=== PATIENT | female | born 1960 | race Caucasian/White ===

== ENCOUNTER 2022-03-16 10:22 | Inpatient (IN) ==
[2022-03-16] MEDS ORDERED: fentaNYL citrate 100 MCG/2 ML VIAL IV STA (10:37)
--- NOTE | 2022-03-16 10:41 | Emergency Department Note ---
Impression & Plan Left displaced femoral neck fracture ED Provider Note Name: GOMEZ CARR Age: 62 Sex: F Arrives Via: Ambulance Informant: Patient, friend ED Provider: Elgin Jiang MD Chief Complaint: Left hip pain Impression: As per impressions above Medical Decision Making: Pleasant 62-year-old female with history of hypertension, dyslipidemia, stroke, type 2 diabetes, ARCELIA and obesity arrives for evaluation of acute left hip pain. Patient slipped and fell on her friend's hardwood floors landing on her left hip. She had no head injury nor loss of consciousness. She had no headache, neck pain, neurologic deficits nor is she on any blood thinners I do not feel getting CT imaging of the head or neck is indicated at this time. She has significant pain with range of motion of the left hip and her left leg is shortened and externally rotated. There are good pulses and sensation is intact. X-rays reveal a subcapital mildly displaced left hip fracture. Initial labs unremarkable. Patient was kept comfortable with IV narcotics. Hospitalist was consulted along with orthopedics for further management. Patient makes clear this was a mechanical fall and there was no other inciting event. Triage/Nursing Notes reviewed by Me Differentials:Fracture, subluxation, dislocation, contusion, ligamentous injury, neurovascular, compartment syndrome, rhabdomyolysis, as well as other pathologies. Vital Signs: reviewed and remarkable for hypertension Interventions: Fentanyl 50 mcg IV, Dilaudid 0.5 mg IV Labs:Reviewed and remarkable for no significant abnormalities Imaging:X-rays of the chest, left hip, pelvis, left femur. As per radiologist subcapital mildly displaced fracture on the left Consults:Orthopedics & Hospitalist services Plan: Disposition:Hospitalization. Condition: Good History of Present Illness:82-year-old female arrives for evaluation of left hip pain. Patient notes she was at her friend's house when she slipped on the floors. She landed on her left side. She did not hit her head or get knocked out. She notes immediate left hip pain and inability to move the leg due to pain. She was able to get in her friend's car who drove her to the ER. He denies any back, chest, abdominal pains. She states this was not a syncope or other inciting event other than just slipping on the floor. Patient does have a history of strokes and thus was already weak on her left side and that is why she slept. She does take aspirin and Plavix daily. She does not take any other blood thinners. She did not take any pain medication prior to arrival. Any movement makes worse and rest makes better. No previous surgeries on the hip. ROS: See above HPI for pertinent positives & negatives. A total of 10 systems reviewed and were otherwise negative. Past Medical History:Hypertension, CVA, hyperlipidemia, type 2 diabetes, obesity, osteopenia Past Surgical History:Left shoulder Family History:Contributory Social History:Retired, lives from outside of the area, Home Medications:See Below Allergies:NKDA Vitals:Blood Pressure: 174/75, Pulse 80, RR 16, T C, O2 98% on RA Physical Exam: GENERAL: Patient is very uncomfortable appearing and in moderate distress. EYES: No scleral icterus, unremarkable pupils. ENT: Mucous membranes moist, no nasal congestion. NECK: No masses appreciated, nomeningismus, trachea is midline. RESPIRATORY: No dyspnea. Clear to auscultation and equal bilaterally. No wheeze, no rhonchi. CARDIOVASCULAR: Regular rate and rhythm.No murmurs, rubs, gallops appreciated. GASTROINTESTINAL: Abdomen soft, non-tender, no peritonitis.Bowel sounds positive.No masses appreciated. BACK: No midline tenderness, no CVA tenderness EXTREMITIES: Shortened externally rotated left leg with severe pain on range of motion of left hip and some moderate left mid thigh tenderness to palpation. Distal sensation and pulses are intact. Otherwise normal motion all ex tremities, no cyanosis, no edema. NEUROLOGIC: Alert and oriented, no acute motor or sensory deficits, no focal weakness, cranial nerves grossly intact. SKIN: No rash, no jaundice, no diaphoresis. PSYCH: Appropriate GCS: 15 ED Course: Times/Reassessments: Improvement in pain with IV narcotics though did require second dose in the left arm. Elgin Jiang MD Past Med/Surg History Medical History (Updated 03/16/22 @ 18:49 by Elgin Jiang MD) Diabetes mellitus type 2 in obese History of CVA (cerebrovascular accident) HTN (hypertension), benign Hyperlipidemia Obesity ARCELIA (obstructive sleep apnea) Osteopenia Surgical History (Updated 03/16/22 @ 14:58 by Rossy Martínez MD) History of cholecystectomy History of hysterectomy History of sinus surgery History of tonsillectomy Family History (Updated 03/16/22 @ 14:59 by Rossy Martínez MD) Other Family history non-contributory Social History (Updated 03/16/22 @ 14:59 by Rossy Martínez MD) Smoking Status: Never smoker Hx Alcohol Use: No Hx Substance Use: No marital status: Single Current Living Situation: Alone Feels Safe at Home: Yes Allergies Allergies Allergy/AdvReac Type Severity Reaction Status Date / Time No Known Allergies Allergy Verified 03/16/22 14:49 Home Meds Home Medications Medication Instructions Recorded Confirmed atorvastatin 80 mg tablet 80 mg PO DAILY 03/16/22 03/16/22 clopidogrel 75 mg tablet 75 mg PO DAILY 03/16/22 03/16/22 empagliflozin 10 mg tablet 10 mg PO DAILY 03/16/22 03/16/22 (Jardiance) furosemide 20 mg tablet 20 mg PO DAILY PRN weight gain of 03/16/22 03/16/22 2-3 lbs hydrochlorothiazide 25 mg tablet 25 mg PO DAILY 03/16/22 03/16/22 insulin glargine 100 unit/mL (3 80 unit subcut QAM 03/16/22 03/16/22 mL) subcutaneous pen (Lantus Solostar U-100 Insulin) lisinopril 40 mg tablet 40 mg PO QAM 03/16/22 03/16/22 metformin 1,000 mg tablet 1,000 mg PO BID 03/16/22 03/16/22 metoprolol tartrate 50 mg tablet 50 mg PO BID 03/16/22 03/16/22 Results & Data (ED) Vital Signs Vital Signs - 24 hr 03/16/22 10:33 03/16/22 13:12 03/16/22 11:31 Temperature 36.7 C 36.7 C Temperature Source Temporal Artery Scan Oral Pulse Rate 68 61 Pulse Rate [Finger] 80 Pulse Rate from SpO2 Sensor Pulse Rhythm Regular Pulse Strength Normal Respiratory Rate 14 20 14 Respiratory Effort / Characteristics Non-Labored Respiratory Depth Normal Blood Pressure 174/73 H Blood Pressure [Right Arm] 181/80 H Blood Pressure Mean 106 Blood Pressure Mean [Right Arm] 113 Blood Pressure Position Sitting Blood Pressure Position [Right Arm] Lying Pulse Oximetry 97 94 Oxygen Delivery Method Room Air Room Air Sepsis Recent Fever Within 48 Hours No Sepsis New/Unexplained Change in Mental Status N/A Sepsis Action Taken by Nursing No Action Required 03/16/22 11:40 03/16/22 11:50 03/16/22 12:00 Temperature Temperature Source Pulse Rate 75 71 77 Pulse Rate [Finger] Pulse Rate from SpO2 Sensor Pulse Rhythm Pulse Strength Respiratory Rate 17 12 15 Respiratory Effort / Characteristics Respiratory Depth Blood Pressure Blood Pressure [Right Arm] Blood Pressure Mean Blood Pressure Mean [Right Arm] Blood Pressure Position Blood Pressure Position [Right Arm] Pulse Oximetry Oxygen Delivery Method Sepsis Recent Fever Within 48 Hours Sepsis New/Unexplained Change in Mental Status Sepsis Action Taken by Nursing 03/16/22 12:02 03/16/22 12:02 03/16/22 12:10 Temperature Temperature Source Pulse Rate 76 73 Pulse Rate [Finger] Pulse Rate from SpO2 Sensor Pulse Rhythm Pulse Strength Respiratory Rate 16 15 Respiratory Effort / Characteristics Respiratory Depth Blood Pressure 134/112 H Blood Pressure [Right Arm] Blood Pressure Mean 119 Blood Pressure Mean [Right Arm] Blood Pressure Position Blood Pressure Position [Right Arm] Pulse Oximetry Oxygen Delivery Method Sepsis Recent Fever Within 48 Hours Sepsis New/Unexplained Change in Mental Status Sepsis Action Taken by Nursing 03/16/22 13:12 03/16/22 13:12 03/16/22 13:20 Temperature Temperature Source Pulse Rate Pulse Rate [Finger] Pulse Rate from SpO2 Sensor 79 86 Pulse Rhythm Pulse Strength Respiratory Rate Respiratory Effort / Characteristics Respiratory Depth Blood Pressure 181/80 H Blood Pressure [Right Arm] Blood Pressure Mean 113 Blood Pressure Mean [Right Arm] Blood Pressure Position Blood Pressure Position [Right Arm] Pulse Oximetry 93 81 L Oxygen Delivery Method Sepsis Recent Fever Within 48 Hours Sepsis New/Unexplained Change in Mental Status Sepsis Action Taken by Nursing 03/16/22 13:30 03/16/22 13:31 03/16/22 13:31 Temperature Temperature Source Pulse Rate 80 82 Pulse Rate [Finger] Pulse Rate from SpO2 Sensor 78 83 Pulse Rhythm Pulse Strength Respiratory Rate 20 25 H Respiratory Effort / Characteristics Respiratory Depth Blood Pressure 161/103 H Blood Pressure [Right Arm] Blood Pressure Mean 122 Blood Pressure Mean [Right Arm] Blood Pressure Position Blood Pressure Position [Right Arm] Pulse Oximetry 92 92 Oxygen Delivery Method Sepsis Recent Fever Within 48 Hours Sepsis New/Unexplained Change in Mental Status Sepsis Action Taken by Nursing 03/16/22 13:40 Temperature Temperature Source Pulse Rate 78 Pulse Rate [Finger] Pulse Rate from SpO2 Sensor 80 Pulse Rhythm Pulse Strength Respiratory Rate 24 Respiratory Effort / Characteristics Respiratory Depth Blood Pressure Blood Pressure [Right Arm] Blood Pressure Mean Blood Pressure Mean [Right Arm] Blood Pressure Position Blood Pressure Position [Right Arm] Pulse Oximetry 92 Oxygen Delivery Method Sepsis Recent Fever Within 48 Hours Sepsis New/Unexplained Change in Mental Status Sepsis Action Taken by Nursing Laboratory Data Result diagrams: 03/16/22 11:34 03/16/22 11:34 Lab Results 03/16/22 03/16/22 03/16/22 Range/Units 11:34 11:34 11:34 WBC 11.71 H (4.8-10.8) K/ul RBC 6.06 H (3.93-5.22) M/uL Hgb 14.5 (12.0-16.0) g/dl Hct 46.2 H (34.1-44.9) % MCV 76.2 L (80.0-100.0) fL MCH 23.9 L (25.0-34.0) pg MCHC 31.4 L (32.0-36.0) g/dL RDW Std Deviation 41.0 (36.4-46.3) fL RDW Coeff of Tato 15.2 H (11.5-14.5) % Plt Count 251 (130-400) K/uL MPV 11.4 (9.4-12.3) fL Immature Gran % (Auto) 1.2 % Neut % (Auto) 72.7 % Lymph % (Auto) 16.6 % Loup % (Auto) 8.0 % Eos % (Auto) 0.8 % Baso % (Auto) 0.7 % Neut # (Auto) 8.52 H (1.4-6.5) K/uL Lymph # (Auto) 1.94 (1.2-3.4) K/uL Loup # (Auto) 0.94 H (0.24-0.82) K/uL Eos # (Auto) 0.09 (0-0.50) K/uL Baso # (Auto) 0.08 (0-0.2) K/uL Immature Gran # (Auto) 0.14 H (0.00-0.02) K/uL PT 10.6 (9.0-12.0) Seconds INR 1.0 (0.9-1.1) Sodium 139 (136-145) mmol/L Potassium 4.3 (3.5-5.1) mmol/L Chloride 100 (98-107) mmol/L Carbon Dioxide 30 (21-32) mmol/L Anion Gap 9 (3-11) BUN 15 (6-23) mg/dl Creatinine 0.81 (0.6-1.2) mg/dl Est Cr Clr Drug Dosing 101.0 ml/min Est GFR ( Amer) 89.0 ml/min Est GFR (Non-Af Amer) 76.8 ml/min BUN/Creatinine Ratio 18.5 (10-20) Glucose 140 H (70-99(Fasting)) mg/dl Calcium 9.4 (8.5-10.1) mg/dl Magnesium 1.7 (1.7-2.4) mg/dl SARS-CoV-2, RNA, NAAT (NEGATIVE) 03/16/22 Range/Units 13:24 WBC (4.8-10.8) K/ul RBC (3.93-5.22) M/uL Hgb (12.0-16.0) g/dl Hct (34.1-44.9) % MCV (80.0-100.0) fL MCH (25.0-34.0) pg MCHC (32.0-36.0) g/dL RDW Std Deviation (36.4-46.3) fL RDW Coeff of Tato (11.5-14.5) % Plt Count (130-400) K/uL MPV (9.4-12.3) fL Immature Gran % (Auto) % Neut % (Auto) % Lymph % (Auto) % Loup % (Auto) % Eos % (Auto) % Baso % (Auto) % Neut # (Auto) (1.4-6.5) K/uL Lymph # (Auto) (1.2-3.4) K/uL Loup # (Auto) (0.24-0.82) K/uL Eos # (Auto) (0-0.50) K/uL Baso # (Auto) (0-0.2) K/uL Immature Gran # (Auto) (0.00-0.02) K/uL PT (9.0-12.0) Seconds INR (0.9-1.1) Sodium (136-145) mmol/L Potassium (3.5-5.1) mmol/L Chloride (98-107) mmol/L Carbon Dioxide (21-32) mmol/L Anion Gap (3-11) BUN (6-23) mg/dl Creatinine (0.6-1.2) mg/dl Est Cr Clr Drug Dosing ml/min Est GFR ( Amer) ml/min Est GFR (Non-Af Amer) ml/min BUN/Creatinine Ratio (10-20) Glucose (70-99(Fasting)) mg/dl Calcium (8.5-10.1) mg/dl Magnesium (1.7-2.4) mg/dl SARS-CoV-2, RNA, NAAT NEGATIVE (NEGATIVE) Administered Medications Discontinued Medications Fentanyl Citrate (Fentanyl Citrate 100 Mcg/2 Ml Vial) 50 mcg IV NOW STA Stop: 03/16/22 10:38 Last Admin: 03/16/22 11:43 Dose: 50 mcg Documented By: MEKHI Hydromorphone HCl (Hydromorphone Inj 0.5 Mg/0.5 Ml Syr) 0.5 mg IV NOW STA Stop: 03/16/22 13:36 Last Admin: 03/16/22 13:50 Dose: 0.5 mg Documented By: MEKHI Imaging Data Radiologist's Impression: Femur X-Ray 03/16/22 10:37 SINGLE VIEW PELVIS; 2 VIEWS LEFT HIP; 2 VIEWS LEFT FEMUR CLINICAL HISTORY: Fall with left hip injury. FINDINGS: An AP view of the pelvis with AP and crosstable lateral views of the left hip and femur are obtained. No prior studies are available for comparison at the time of dictation. The skeletal structures are osteopenic. There is an impacted and mildly displaced fracture of the subcapital left femur with overlying soft tissue edema. The distal left femur appears intact. No fracture seen involving the right hip or the bony pelvis. Mild degenerative change and joint space narrowing is present in both hips. There is degenerative sclerosis of the sacroiliac joints. There is atherosclerotic calcification of the femoral arteries. Phleboliths are noted in the pelvis. IMPRESSION: 1. Impacted and mildly displaced subcapital fracture of the left proximal femur. 2. The distal left femur appears intact. 3. No fracture is seen involving the right hip or the bony pelvis. Electronically signed by: Juancho Maxwell M.D. 03/16/2022 12:59 PM Hip/Pelvis X-Ray 03/16/22 10:37 SINGLE VIEW PELVIS; 2 VIEWS LEFT HIP; 2 VIEWS LEFT FEMUR CLINICAL HISTORY: Fall with left hip injury. FINDINGS: An AP view of the pelvis with AP and crosstable lateral views of the left hip and femur are obtained. No prior studies are available for comparison at the time of dictation. The skeletal structures are osteopenic. There is an impacted and mildly displaced fracture of the subcapital left femur with overlying soft tissue edema. The distal left femur appears intact. No fracture seen involving the right hip or the bony pelvis. Mild degenerative change and joint space narrowing is present in both hips. There is degenerative sclerosis of the sacroiliac joints. There is atherosclerotic calcification of the femoral arteries. Phleboliths are noted in the pelvis. IMPRESSION: 1. Impacted and mildly displaced subcapital fracture of the left proximal femur. 2. The distal left femur appears intact. 3. No fracture is seen involving the right hip or the bony pelvis. Electronically signed by: Juancho Maxwell M.D. 03/16/2022 12:59 PM Chest X-Ray 03/16/22 10:38 XR chest 1V portable HISTORY: 62 years-old Female pre op preoperative exam. No acute chest complaints COMPARISON: None TECHNIQUE: AP view of the chest FINDINGS: The cardiac silhouette is enlarged. No pneumothorax, pleural effusion, airspace consolidation or overt pulmonary edema. Mild right hemidiaphragmatic elevation. Degenerative changes of the shoulders and spine. IMPRESSION: Cardiomegaly without acute process. ACT 112: Negative or not required by law. The above report was generated using voice recognition software. It may contain grammatical, syntax or spelling errors. Electronically signed by: Mandeep Smith M.D. 03/16/2022 1:06 PM Discharge Plan Visit Data Chief Complaint: Hip Pain Stated Complaint: fall ED Provider: Elgin Jiang Discharge Problem: Left displaced femoral neck fracture Patient Disposition: Admitted As Inpatient Discharge Instructions Interventions: ED Discharge Assessment Last Done: 03/16/22 18:00
[2022-03-16 12:02] LABS: Hematocrit (blood only) 46.2 % (34.1-44.9); Hemoglobin 14.5 g/dl (12.0-16.0); Mean Corpuscular Hemoglobin 23.9 pg (25.0-34.0); Mean Corpuscular Hgb Conc 31.4 g/dL (32.0-36.0); Mean Corpuscular Volume 76.2 fL (80.0-100.0); Mean Platelet Volume 11.4 fL (9.4-12.3); Platelet Count 251 K/uL (130-400); RDW Coefficient of Variation 15.2 % (11.5-14.5); Red Blood Count 6.06 M/uL (3.93-5.22); White Blood Count 11.71 K/ul (4.8-10.8)
[2022-03-16 12:10] LABS: Prothrombin Time 10.6 Seconds (9.0-12.0)
[2022-03-16 12:23] LABS: Basophils # (auto) 0.08 K/uL (0-0.2); Basophils % (auto) 0.7 %; Eosinophils # (auto) 0.09 K/uL (0-0.50); Eosinophils % (auto) 0.8 %; Immature Granulocytes # (auto) 0.14 K/uL (0.00-0.02); Immature Granulocytes % (auto) 1.2 %; Lymphocytes # (auto) 1.94 K/uL (1.2-3.4); Lymphocytes % (auto) 16.6 %; Monocytes # (auto) 0.94 K/uL (0.24-0.82); Neutrophils # (auto) 8.52 K/uL (1.4-6.5); Neutrophils % (auto) 72.7 %
[2022-03-16 12:24] LABS: BUN Creatinine Ratio 18.5 (10-20); Calcium 9.4 mg/dl (8.5-10.1); Est GFR (Non-African American) 76.8 ml/min; Magnesium 1.7 mg/dl (1.7-2.4); Potassium 4.3 mmol/L (3.5-5.1)
--- NOTE | 2022-03-16 13:00 | XRay Report ---
SINGLE VIEW PELVIS; 2 VIEWS LEFT HIP; 2 VIEWS LEFT FEMUR CLINICAL HISTORY: Fall with left hip injury. FINDINGS: An AP view of the pelvis with AP and crosstable lateral views of the left hip and femur are obtained. No prior studies are available for comparison at the time of dictation. The skeletal struc tures are osteopenic. There is an impacted and mildly displaced fracture of the subcapital left femur with overlying soft tissue edema. The distal left femur appears intact. No fracture seen involving t he right hip or the bony pelvis. Mild degenerative change and joint space narrowing is present in bot h hips. There is degenerative sclerosis of the sacroiliac joints. There is atherosclerotic calcificat ion of the femoral arteries. Phleboliths are noted in the pelvis. IMPRESSION: 1. Impacted and mildly displaced subcapital fracture of the left proximal femur. 2. The distal left femur appears intact. 3. No fracture is seen involving the right hip or the bony pelvis. Electronically signed by: Juancho Maxwell M.D. 03/16/2022 12:59 PM
--- NOTE | 2022-03-16 13:07 | XRay Report ---
XR chest 1V portable HISTORY: 62 years-old Female pre op preoperative exam. No acute chest complaints COMPARISON: None TECHNIQUE: AP view of the chest FINDINGS: The cardiac silhouette is enlarged. No pneumothorax, pleural effusion, airspace consolidation or over t pulmonary edema. Mild right hemidiaphragmatic elevation. Degenerative changes of the shoulders and spine. IMPRESSION: Cardiomegaly without acute process. ACT 112: Negative or not required by law. The above report was generated using voice recognition software. It may contain grammatical, syntax o r spelling errors. Electronically signed by: Mandeep Smith M.D. 03/16/2022 1:06 PM
[2022-03-16] MEDS ORDERED: HYDROmorphone INJ 0.5 MG/0.5 ML SYR IV STA (13:35)
--- NOTE | 2022-03-16 13:45 | History & Physical Report ---
Date of Service March 16, 2022 Assessment & Plan (1) Hip fracture: Plan: Presents with mechanical fall onto left hip resulting in mildly displaced left subcapital hip fracture -Admit to medical/surgical unit -Consult orthopedic surgery for surgical repair evaluation -Keep n.p.o. for now and run gentle IV fluids with LR at 80 mL/h -Pain control tiered with Tylenol, oxycodone, IV Dilaudid as needed -Antiemetics as needed and bowel regimen -DVT prophylaxis with SCDs only for now and will defer to orthopedic surgery for postoperatively -PT/OT evaluations will be needed as well postop -Follow CBC, BMP, vitamin D level in the morning -She has no cardiac history and no chest pains, no CKD or PAD. Will check preoperative ECG now, but if normal, okay to proceed with this intermediate risk procedure. She is at average perioperative cardiovascular risk and should p roceed with surgery. (2) HTN (hypertension), benign: Plan: Mildly hypertensive secondary to pain, improved with pain control Continue home HCTZ, lisinopril, metoprolol Monitor blood pressures (3) Diabetes mellitus type 2 in obese: Plan: Is on Lantus and Jardiance as well as metformin at home Hold home Jardiance and metformin -Reduce Lantus to 50 units once daily while she is n.p.o. and in the hospital- adjust as needed -Check hemoglobin A1c in the morning -Accu-Cheks, NovoLog sliding scale -Diabetic diet when allowed to eat (4) Osteopenia: Plan: Not on medication for this at home but recently had a bone density scan as an outpatient -Check vitamin D level in the morning Now with fracture after fall from standing height-this is considered an osteoporosis associated pathological fracture Follow-up with PCP after discharge (5) Obesity: Plan: BMI 49.5 Needs counseling on weight loss (6) History of CVA (cerebrovascular accident): Plan: History of CVA when she lived in [place], [place] many years ago With mild residual left hemiparesis Continue home Plavix, statin, BP control, diabetes control Monitor in the perioperative time for stroke (7) Hyperlipidemia: Plan: Continue statin (8) ARCELIA (obstructive sleep apnea): Plan: Patient longer wears her CPAP at home due to improper fitting and actually gave it away to a friend -She is agreeable to wear CPAP while here-ordered for nightly Plan DVT prophylaxis-SCDs only for now due to impending surgery Disposition-admit to medical/surgical floor. Will likely need rehab placement and she would like to stay local for this as she lives several hours away from here Full code She designates her friend, Enriqueta, as her point of contact, but she does have a sister who would be her next of kin for decision-making capability if needed. Her sister's name is Cynthia Carpenter and her phone number is [phone] History of Present Illness Chief Complaint: Left hip pain, fall Primary Care Provider: NO PCP This patient is a 62-year-old female with a history of CVA with left-sided mild hemiparesis, HTN, DM2, morbid obesity, hyperlipidemia, ARCELIA noncompliant with CPAP, and osteopenia, who presents to the ER with severe left hip pain following a fall after she slipped on hardwood floor while wearing her compression stockings today. She is visiting the area from out of town and staying with a friend of hers. She was walking into the kitchen on the hardwood floor and tried to turn to the left and her feet slipped out from under her. She landed on her left hip only. She did not lose consciousness at any point. She never felt lightheaded or had chest pain or palpitations prior to the fall. She did not hit her head or hurt any other parts of her body. She tried to get back up onto her feet but was not able to and came in by ambulance. She was found to have a left mildly displaced subcapital hip fracture on x-ray. She was mildly hypertensive but otherwise vital signs were stable. She was given IV pain medicine and hospitalist service consulted for admission for hip fracture. Allergies Allergy/AdvReac Type Severity Reaction Status Date / Time No Known Allergies Allergy Verified 03/16/22 14:49 Home Medications Medication Instructions Recorded Confirmed Type atorvastatin 80 mg tablet 80 mg PO DAILY 03/16/22 03/16/22 History clopidogrel 75 mg tablet 75 mg PO DAILY 03/16/22 03/16/22 History empagliflozin 10 mg tablet 10 mg PO DAILY 03/16/22 03/16/22 History (Jardiance) furosemide 20 mg tablet 20 mg PO DAILY PRN weight gain of 03/16/22 03/16/22 History 2-3 lbs hydrochlorothiazide 25 mg tablet 25 mg PO DAILY 03/16/22 03/16/22 History insulin glargine 100 unit/mL (3 80 unit subcut QAM 03/16/22 03/16/22 History mL) subcutaneous pen (Lantus Solostar U-100 Insulin) lisinopril 40 mg tablet 40 mg PO QAM 03/16/22 03/16/22 History metformin 1,000 mg tablet 1,000 mg PO BID 03/16/22 03/16/22 History metoprolol tartrate 50 mg tablet 50 mg PO BID 03/16/22 03/16/22 History Past Med/Surg History Medical History (Updated 03/16/22 @ 15:22 by Rossy Martínez MD) Diabetes mellitus type 2 in obese History of CVA (cerebrovascular accident) HTN (hypertension), benign Hyperlipidemia Obesity ARCELIA (obstructive sleep apnea) Osteopenia Surgical History (Updated 03/16/22 @ 14:58 by Rossy Martínez MD) History of cholecystectomy History of hysterectomy History of sinus surgery History of tonsillectomy Family History (Updated 03/16/22 @ 14:59 by Rossy Martínez MD) Other Family history non-contributory Social History (Updated 03/16/22 @ 14:59 by Rossy Martínez MD) Smoking Status: Never smoker Hx Alcohol Use: No Hx Substance Use: No marital status: Single Current Living Situation: Alone Feels Safe at Home: Yes Review of Systems Review of Systems: All systems reviewed & are unremarkable except as noted in HPI & below Physical Exam Constitutional: WD/WN, vitals as above Eyes: PERRL, conjunctivae normal, anicteric sclerae ENMT: external ear and nose normal, oropharynx normal Neck: trachea midline, no thyromegaly Respiratory: normal respiratory effort, lungs clear to auscultation Cardiovascular: RRR, no murmur, no edema Vessels: dorsalis pedis pulses present Chest (Breasts): Chest: normal inspection of chest Gastrointestinal (Abdomen): normal bowel sounds, soft, nontender, no hepatosplenomegaly Musculoskeletal: Extremities: + extremities abnormal to inspection (Left lower extremity slightly shortened and externally rotated, no TTP ), no cyanosis and no clubbing Skin: no rashes, warm and dry Neurologic: moves all extremities and awake; no focal motor deficits (Except LLE not tested due to pain) Psychiatric: A+Ox3, euthymic affect Lymphatic: no lymphedema Results & Data Results & Data ([facility]) Vital Signs (Past 12 Hours) Vital Signs Temp Pulse Pulse Resp BP BP Pulse Ox 03/16/22 13:12 36.7 C 80 20 181/80 H 94 03/16/22 10:33 36.7 C 68 14 174/73 H 97 O2 Del Method 03/16/22 13:12 Room Air 03/16/22 10:33 Room Air Laboratory Results 03/16/22 03/16/22 03/16/22 Range/Units 13:24 11:34 11:34 WBC (4.8-10.8) K/ul RBC (3.93-5.22) M/uL Hgb (12.0-16.0) g/dl Hct (34.1-44.9) % MCV (80.0-100.0) fL MCH (25.0-34.0) pg MCHC (32.0-36.0) g/dL RDW Std Deviation (36.4-46.3) fL RDW Coeff of Tato (11.5-14.5) % Plt Count (130-400) K/uL MPV (9.4-12.3) fL Immature Gran % (Auto) % Neut % (Auto) % Lymph % (Auto) % [place] % (Auto) % Eos % (Auto) % Baso % (Auto) % Neut # (Auto) (1.4-6.5) K/uL Lymph # (Auto) (1.2-3.4) K/uL [place] # (Auto) (0.24-0.82) K/uL Eos # (Auto) (0-0.50) K/uL Baso # (Auto) (0-0.2) K/uL Immature Gran # (Auto) (0.00-0.02) K/uL PT 10.6 (9.0-12.0) Seconds INR 1.0 (0.9-1.1) Sodium 139 (136-145) mmol/L Potassium 4.3 (3.5-5.1) mmol/L Chloride 100 (98-107) mmol/L Carbon Dioxide 30 (21-32) mmol/L Anion Gap 9 (3-11) BUN 15 (6-23) mg/dl Creatinine 0.81 (0.6-1.2) mg/dl Est Cr Clr Drug Dosing 101.0 ml/min Est GFR ( Amer) 89.0 ml/min Est GFR (Non-Af Amer) 76.8 ml/min BUN/Creatinine Ratio 18.5 (10-20) Glucose 140 H (70-99(Fasting)) mg/dl Calcium 9.4 (8.5-10.1) mg/dl Magnesium 1.7 (1.7-2.4) mg/dl SARS-CoV-2, RNA, NAAT NEGATIVE (NEGATIVE) 03/16/22 Range/Units 11:34 WBC 11.71 H (4.8-10.8) K/ul RBC 6.06 H (3.93-5.22) M/uL Hgb 14.5 (12.0-16.0) g/dl Hct 46.2 H (34.1-44.9) % MCV 76.2 L (80.0-100.0) fL MCH 23.9 L (25.0-34.0) pg MCHC 31.4 L (32.0-36.0) g/dL RDW Std Deviation 41.0 (36.4-46.3) fL RDW Coeff of Tato 15.2 H (11.5-14.5) % Plt Count 251 (130-400) K/uL MPV 11.4 (9.4-12.3) fL Immature Gran % (Auto) 1.2 % Neut % (Auto) 72.7 % Lymph % (Auto) 16.6 % [place] % (Auto) 8.0 % Eos % (Auto) 0.8 % Baso % (Auto) 0.7 % Neut # (Auto) 8.52 H (1.4-6.5) K/uL Lymph # (Auto) 1.94 (1.2-3.4) K/uL [place] # (Auto) 0.94 H (0.24-0.82) K/uL Eos # (Auto) 0.09 (0-0.50) K/uL Baso # (Auto) 0.08 (0-0.2) K/uL Immature Gran # (Auto) 0.14 H (0.00-0.02) K/uL PT (9.0-12.0) Seconds INR (0.9-1.1) Sodium (136-145) mmol/L Potassium (3.5-5.1) mmol/L Chloride (98-107) mmol/L Carbon Dioxide (21-32) mmol/L Anion Gap (3-11) BUN (6-23) mg/dl Creatinine (0.6-1.2) mg/dl Est Cr Clr Drug Dosing ml/min Est GFR ( Amer) ml/min Est GFR (Non-Af Amer) ml/min BUN/Creatinine Ratio (10-20) Glucose (70-99(Fasting)) mg/dl Calcium (8.5-10.1) mg/dl Magnesium (1.7-2.4) mg/dl SARS-CoV-2, RNA, NAAT (NEGATIVE) Diagnostic Findings X-ray images personally reviewed by me and agree with following reports: Femur X-Ray 03/16/22 10:37 SINGLE VIEW PELVIS; 2 VIEWS LEFT HIP; 2 VIEWS LEFT FEMUR CLINICAL HISTORY: Fall with left hip injury. FINDINGS: An AP view of the pelvis with AP and crosstable lateral views of the left hip and femur are obtained. No prior studies are available for comparison at the time of dictation. The skeletal structures are osteopenic. There is an impacted and mildly displaced fracture of the subcapital left femur with overlying soft tissue edema. The distal left femur appears intact. No fracture seen involving the right hip or the bony pelvis. Mild degenerative change and joint space narrowing is present in both hips. There is degenerative sclerosis of the sacroiliac joints. There is atherosclerotic calcification of the femoral arteries. Phleboliths are noted in the pelvis. IMPRESSION: 1. Impacted and mildly displaced subcapital fracture of the left proximal femur. 2. The distal left femur appears intact. 3. No fracture is seen involving the right hip or the bony pelvis. Electronically signed by: Juancho Maxwell M.D. 03/16/2022 12:59 PM Hip/Pelvis X-Ray 03/16/22 10:37 SINGLE VIEW PELVIS; 2 VIEWS LEFT HIP; 2 VIEWS LEFT FEMUR CLINICAL HISTORY: Fall with left hip injury. FINDINGS: An AP view of the pelvis with AP and crosstable lateral views of the left hip and femur are obtained. No prior studies are available for comparison at the time of dictation. The skeletal structures are osteopenic. There is an impacted and mildly displaced fracture of the subcapital left femur with overlying soft tissue edema. The distal left femur appears intact. No fracture seen involving the right hip or the bony pelvis. Mild degenerative change and joint space narrowing is present in both hips. There is degenerative sclerosis of the sacroiliac joints. There is atherosclerotic calcification of the femoral arteries. Phleboliths are noted in the pelvis. IMPRESSION: 1. Impacted and mildly displaced subcapital fracture of the left proximal femur. 2. The distal left femur appears intact. 3. No fracture is seen involving the right hip or the bony pelvis. Electronically signed by: Juancho Maxwell M.D. 03/16/2022 12:59 PM Chest X-Ray 03/16/22 10:38 XR chest 1V portable HISTORY: 62 years-old Female pre op preoperative exam. No acute chest complaints COMPARISON: None TECHNIQUE: AP view of the chest FINDINGS: The cardiac silhouette is enlarged. No pneumothorax, pleural effusion, airspace consolidation or overt pulmonary edema. Mild right hemidiaphragmatic elevation. Degenerative changes of the shoulders and spine. IMPRESSION: Cardiomegaly without acute process. ACT 112: Negative or not required by law. The above report was generated using voice recognition software. It may contain grammatical, syntax or spelling errors. Electronically signed by: Mandeep Smith M.D. 03/16/2022 1:06 PM ECG Additional Comments: No ECG was performed in the ER Code Status & VTE Plan Code Status Full code but would not want prolonged life support if she survived cardiac arrest but had a poor prognosis VTE Prophylaxis Plan VTE Prophylaxis will be ordered: Yes PG Care Time/CCT Total # of Minutes Spent Total Time Spent with Patient: Total time spent is greater than 50% in coordination of care (as documented) at patient's floor/unit and/or counseling patient: Coding Level of Care Code 82440 Initial Inpt Care Lvl 3 Diagnoses Hip fracture S72.009A HTN (hypertension), benign I10 Diabetes mellitus type 2 in obese E11.69; E66.9 Osteopenia M85.80 Obesity E66.9 History of CVA (cerebrovascular accident) Z86.73 Hyperlipidemia E78.5 ARCELIA (obstructive sleep apnea) G47.33
--- NOTE | 2022-03-16 18:13 | Orthopedic Consultation ---
Date of Consultation March 16, 2022 Assessment & Plan (1) Left displaced femoral neck fracture: She has a displaced left hip femoral neck fracture. No evidence of underlying hip joint arthritis. I would recommend a left hip hemiarthroplasty. We briefly discussed potential total hip arthroplasty, but she has no evidence of pre- existing hip joint arthritis, and total hip for femoral neck fracture would have a higher dislocation rate. I did advise her that she may require conversion to a total hip at some point in the future if she develops significant wear of the acetabular cartilage. She understands and is in agreement this plan. Risks, benefits, and alternatives of surgery were explained in detail. The surgical procedure, as well as postoperative recovery and rehabilitation, was also explained in detail. Risks include bleeding; infection; damage to surrounding structures such as nerves, blood vessels, and tendons that run in the area; persistent pain or stiffness; hardware failure; dislocation; leg length discrepancy; blood clots; or need for further surgery. The patient understands all of this and wishes to proceed with surgery. Informed consent was obtained. History of Present Illness Reason for Consultation: Left hip injury History of Present Illness Ms. Rehman is a 62-year-old female who sustained a ground-level fall onto her left hip today. She slipped on a slick lauri surface. She denies any syncope or loss of consciousness. She denies any other significant extremity injury other than her left hip. She denies significant pre-existing pain in that left hip. She does mention that she has some weakness due to previous stroke. She is on aspirin and Plavix for that stroke. Allergies Allergy/AdvReac Type Severity Reaction Status Date / Time No Known Allergies Allergy Verified 03/16/22 14:49 Home Medications Medication Instructions Recorded Confirmed Type atorvastatin 80 mg tablet 80 mg PO DAILY 03/16/22 03/16/22 History clopidogrel 75 mg tablet 75 mg PO DAILY 03/16/22 03/16/22 History empagliflozin 10 mg tablet 10 mg PO DAILY 03/16/22 03/16/22 History (Jardiance) furosemide 20 mg tablet 20 mg PO DAILY PRN weight gain of 03/16/22 03/16/22 History 2-3 lbs hydrochlorothiazide 25 mg tablet 25 mg PO DAILY 03/16/22 03/16/22 History insulin glargine 100 unit/mL (3 80 unit subcut QAM 03/16/22 03/16/22 History mL) subcutaneous pen (Lantus Solostar U-100 Insulin) lisinopril 40 mg tablet 40 mg PO QAM 03/16/22 03/16/22 History metformin 1,000 mg tablet 1,000 mg PO BID 03/16/22 03/16/22 History metoprolol tartrate 50 mg tablet 50 mg PO BID 03/16/22 03/16/22 History Patient History Medical History (Updated 03/16/22 @ 18:14 by Richie aLw M.D.) Diabetes mellitus type 2 in obese History of CVA (cerebrovascular accident) HTN (hypertension), benign Hyperlipidemia Obesity ARCELIA (obstructive sleep apnea) Osteopenia Surgical History (Updated 03/16/22 @ 14:58 by Rossy Martínez MD) History of cholecystectomy History of hysterectomy History of sinus surgery History of tonsillectomy Family History (Updated 03/16/22 @ 14:59 by Rossy Martínez MD) Other Family history non-contributory Social History (Updated 03/16/22 @ 14:59 by Rossy Martínez MD) Smoking Status: Never smoker Hx Alcohol Use: No Hx Substance Use: No marital status: Single Current Living Situation: Alone Feels Safe at Home: Yes Physical Exam Physical Exam: She is morbidly obese. Examination of the left hip shows no open wounds. There is shortening and external rotation of the leg. There is mild swelling and tenderness to palpation of the thigh and hip area. Compartments are soft and compressible. Intact ankle dorsiflexion and plantarflexion. Results & Data ([facility]) Vital Signs (Past 12 Hours) Vital Signs Temp Pulse Pulse Resp BP BP Pulse Ox 03/16/22 17:00 37 C 90 20 157/74 H 97 03/16/22 17:20 85 18 96 03/16/22 17:10 84 19 96 03/16/22 17:01 169/83 H 03/16/22 17:01 74 12 98 03/16/22 17:00 86 15 97 03/16/22 16:50 85 18 97 03/16/22 16:40 85 19 98 03/16/22 16:32 98 H 17 97 03/16/22 16:32 211/78 H 03/16/22 16:30 85 24 96 03/16/22 16:20 84 14 96 03/16/22 16:10 89 14 97 03/16/22 16:01 160/67 H 03/16/22 16:01 89 19 96 03/16/22 16:00 90 18 95 03/16/22 15:50 85 23 95 03/16/22 15:40 86 20 97 03/16/22 15:33 87 16 98 03/16/22 15:33 161/79 H 03/16/22 15:32 82 16 97 03/16/22 15:30 90 15 96 03/16/22 15:20 77 14 98 03/16/22 15:10 96 H 23 97 03/16/22 15:01 78 16 97 03/16/22 15:00 84 14 98 03/16/22 14:50 90 14 98 03/16/22 14:40 89 20 98 03/16/22 14:30 92 H 16 99 03/16/22 14:20 76 16 96 03/16/22 14:10 80 16 99 03/16/22 14:02 73 13 98 03/16/22 14:02 191/77 H 03/16/22 14:00 81 21 99 03/16/22 13:50 80 16 94 03/16/22 13:40 78 24 92 03/16/22 13:31 82 25 H 92 03/16/22 13:31 161/103 H 03/16/22 13:30 80 20 92 03/16/22 13:20 81 L 03/16/22 13:12 93 03/16/22 13:12 181/80 H 03/16/22 12:10 73 15 03/16/22 12:02 76 16 03/16/22 12:02 134/112 H 03/16/22 12:00 77 15 03/16/22 11:50 71 12 03/16/22 11:40 75 17 03/16/22 11:31 61 14 03/16/22 15:34 85 16 161/79 H 98 03/16/22 15:00 36.6 C 8 L 20 132/53 L 95 03/16/22 13:12 36.7 C 80 20 181/80 H 94 03/16/22 10:33 36.7 C 68 14 174/73 H 97 O2 Del Method O2 Flow Rate 03/16/22 17:00 Nasal Cannula 2 03/16/22 17:20 03/16/22 17:10 03/16/22 17:01 03/16/22 17:01 03/16/22 17:00 03/16/22 16:50 03/16/22 16:40 03/16/22 16:32 03/16/22 16:32 03/16/22 16:30 03/16/22 16:20 03/16/22 16:10 03/16/22 16:01 03/16/22 16:01 03/16/22 16:00 03/16/22 15:50 03/16/22 15:40 03/16/22 15:33 03/16/22 15:33 03/16/22 15:32 03/16/22 15:30 03/16/22 15:20 03/16/22 15:10 03/16/22 15:01 03/16/22 15:00 03/16/22 14:50 03/16/22 14:40 03/16/22 14:30 03/16/22 14:20 03/16/22 14:10 03/16/22 14:02 03/16/22 14:02 03/16/22 14:00 03/16/22 13:50 03/16/22 13:40 03/16/22 13:31 03/16/22 13:31 03/16/22 13:30 03/16/22 13:20 03/16/22 13:12 03/16/22 13:12 03/16/22 12:10 03/16/22 12:02 03/16/22 12:02 03/16/22 12:00 03/16/22 11:50 03/16/22 11:40 03/16/22 11:31 03/16/22 15:34 Room Air 03/16/22 15:00 Nasal Cannula 03/16/22 13:12 Room Air 03/16/22 10:33 Room Air Diagnostic Findings New x-rays of the left hip were obtained today. They show a displaced femoral neck fracture. No obvious hip joint arthritis. Femoral shaft bone stock appears well-preserved.
--- NOTE | 2022-03-16 18:15 | Electrocardiogram Report ---
Test Reason : Blood Pressure : / mmHG Vent. Rate : 080 BPM Atrial Rate : 080 BPM P-R Int : 126 ms QRS Dur : 086 ms QT Int : 372 ms P-R-T Axes : 025 010 058 degrees QTc Int : 429 ms Normal sinus rhythm Minimal voltage criteria for LVH, may be normal variant No previous ECGs available Confirmed by Dino Magaña ([id number]) on 03/16/2022 6:15:03 PM Referred By: REFERRED SELF Confirmed By:Rey Magaña
[2022-03-16] MEDS ORDERED: GLUCOSE 40% GEL 15 GM TUBE PO PRN (18:23)
[2022-03-16] MEDS ORDERED: GLUCAGON FOR INJ 1 MG VIAL SQ PRN (18:23)
[2022-03-16] MEDS ORDERED: oxyCODONE HCL IR 5 MG TAB (IMMEDIATE RELEASE) PO PRN (18:23)
[2022-03-16] MEDS ORDERED: HYDROmorphone INJ 0.5 MG/0.5 ML SYR IV PRN ×2 (18:23)
[2022-03-16] MEDS ORDERED: CARBOHYDRATES FOR HYPOGLYCEMIA PO PRN (18:23)
[2022-03-16] MEDS ORDERED: NALOXONE HCL 0.4 MG/1 ML VIAL/CARP IV PRN (18:23)
[2022-03-16] MEDS ORDERED: DEXTROSE 50% 50 ML SYRINGE IV PRN (18:23)
[2022-03-16] MEDS ORDERED: ONDANSETRON INJ 2 MG/ML 2 ML VIAL IV PRN (18:23)
[2022-03-16] MEDS ORDERED: GLUCOSE 10 TAB/TUBE PO PRN (18:23)
[2022-03-16] MEDS ORDERED: POLYETHYLENE (MIRALAX) 17 GM PACK PO PRN (18:23)
[2022-03-16] MEDS ORDERED: MAGNESIUM HYDROXIDE SUSP 30 ML UDC PO PRN (18:23)
[2022-03-16] MEDS ORDERED: ACETAMINOPHEN 325 MG TAB PO PRN (18:23)
[2022-03-16] MEDS ORDERED: bisacodyL 10 MG SUPP PR PRN (18:23)
[2022-03-16] MEDS: INSULIN ASPART PER UNIT SC SCH ×2 (19:35→21:00)
[2022-03-16] MEDS: LACTATED RINGER'S 1,000 ML IV SCH (19:48)
[2022-03-16] MEDS: METOPROLOL TARTRATE 50 MG TAB PO SCH (20:15)
[2022-03-16] MEDS: DOCUSATE SODIUM/SENNA 50/8.6MG TAB PO SCH (20:15)
[2022-03-17] MEDS ORDERED: Nursing to Pharmacy Communication SCH ×2 (02:00→22:30)
[2022-03-17] MEDS ORDERED: TRANEXAMIC ACID 1,000 MG **IV Intra-op IV SCH (06:00)
[2022-03-17] MEDS: INSULIN ASPART PER UNIT SC SCH ×3 (06:03→21:26)
[2022-03-17 06:17] LABS: Basophils # (auto) 0.09 K/uL (0-0.2); Basophils % (auto) 0.7 %; Eosinophils # (auto) 0.25 K/uL (0-0.50); Hematocrit (blood only) 45.1 % (34.1-44.9); Hemoglobin 14.3 g/dl (12.0-16.0); Immature Granulocytes # (auto) 0.07 K/uL (0.00-0.02); Immature Granulocytes % (auto) 0.6 %; Lymphocytes # (auto) 1.94 K/uL (1.2-3.4); Lymphocytes % (auto) 15.5 %; Mean Corpuscular Hemoglobin 24.1 pg (25.0-34.0); Mean Corpuscular Hgb Conc 31.7 g/dL (32.0-36.0); Mean Corpuscular Volume 75.9 fL (80.0-100.0); Monocytes # (auto) 1.15 K/uL (0.24-0.82); Monocytes % (auto) 9.2 %; Neutrophils # (auto) 9.04 K/uL (1.4-6.5); Platelet Count 239 K/uL (130-400); RDW Coefficient of Variation 15.1 % (11.5-14.5); RDW Standard Deviation 39.8 fL (36.4-46.3); Red Blood Count 5.94 M/uL (3.93-5.22); White Blood Count 12.54 K/ul (4.8-10.8)
[2022-03-17 06:45] LABS: BUN Creatinine Ratio 18.2 (10-20); Calcium 8.8 mg/dl (8.5-10.1); Est GFR (African American) 108.2 ml/min; Est GFR (Non-African American) 93.4 ml/min; Potassium 3.7 mmol/L (3.5-5.1)
[2022-03-17 07:22] LABS: Estimated Average Glucose 163 mg/dl; Hemoglobin A1C 7.3 % (4.5-5.6)
[2022-03-17] MEDS: LANTUS PER UNIT CHARGE SQ SCH (08:05)
[2022-03-17] MEDS: METOPROLOL TARTRATE 50 MG TAB PO SCH ×2 (08:06→21:22)
[2022-03-17] MEDS: hydroCHLOROthiazide 25 MG TAB PO SCH (08:06)
[2022-03-17] MEDS: LACTATED RINGER'S 1,000 ML IV SCH ×2 (08:06→22:14)
[2022-03-17] MEDS: lisinopril 40 MG TAB PO SCH (08:06)
[2022-03-17] MEDS: ATORVASTATIN 40 MG TAB PO SCH (08:06)
[2022-03-17] MEDS ORDERED: CLOPIDOGREL BISULFATE 75 MG TAB PO SCH (09:00)
--- NOTE | 2022-03-17 11:21 | Hospitalist Progress Note ---
Date of Service March 17, 2022 Assessment & Plan (1) Hip fracture: Plan: Likely osteoporotic fracture from mechanical fall -XR- mildly displaced left subcapital hip fracture -Orthopedic consult- left hip hemiarthroplasty recommended, scheduled for 03/17 -NPO, IVF for surgery -Pain regimen ordered with Tylenol, oxycodone, Dilaudid PRN -PT/OT to be ordered for postoperative evaluation for rehab placement -Pt is currently at low risk for surgical complication (2) HTN (hypertension), benign: Plan: Mildly hypertensive secondary to pain, improved with pain control Continue home HCTZ, lisinopril, metoprolol Monitor blood pressures- some elevated SBP 180s/80s-90s likely due to pain and not hypertensive urgency (3) Diabetes mellitus type 2 in obese: Plan: Is on Lantus and Jardiance as well as metformin at home Hold home Jardiance and metformin -Lantus 50 units once daily while she is n.p.o. and in the hospital-adjust as needed -A1C 7.3 -Accu-Cheks, NovoLog sliding scale -Diabetic diet when allowed to eat (4) Osteopenia: Plan: Not on medication for this at home but recently had a bone density scan as an outpatient -Vitamin D level 38, low-normal -Would likely benefit from bisphosphonate therapy as outpatient -Will discharge on vitamin D supplementation due to osteoporotic fracture (5) Obesity: Plan: BMI 49.5 Will discuss weight loss and school counselor on lifestyle modification (6) History of CVA (cerebrovascular accident): Plan: History of CVA when she lived in [place], [place] many years ago with mild residual left hemiparesis Continue home Plavix, statin, BP control, diabetes control Monitor in the perioperative time for stroke- does not appear likely at this time (7) Hyperlipidemia: Plan: Continue statin (8) ARCELIA (obstructive sleep apnea): Plan: Patient longer wears her CPAP at home due to improper fitting and actually gave it away to a friend -She is agreeable to wear CPAP while here-ordered for nightly Plan Diet- NPO for surgery DVT prophylaxis-SCDs only for now due to impending surgery Disposition- medical/surgical Full code She designates her friend, Enriqueta, as her point of contact, but she does have a sister who would be her next of kin for decision-making capability if needed. Her sister's name is Cynthia Carpenter and her phone number is [phone] Admission and Anticipated Discharge Date Admission Date: March 16, 2022 Supervising Physician Co-Signing Physician Notes I personally examined the patient and verified all craig points of history and exam, discussed case, and agree with decision making with Dr Johnston Pain controlled as long she does not move much. Extensive questions answered all to the best my ability. Vitals noted, in general she is awake and alert pleasant no distress. HEENT normocephalic atraumatic mucous membranes moist. Breathing unlabored no accessory muscle use good effort. Skin shows no rashes no pallor or icterus. Neuro without focal deficits. Hip fractureosteopenia on most recent DEXA scan, have to assume osteoporotic overall given fracture with ground-level fall, and recent shoulder fracture with a similar ground-level fall. Vitamin D adequate at 40 right nowwould want to see what it is like in the middle of winter. Probably would start bisphosphonate in about a month. Type 2 [id number] 7.3. Extensive discussion on lifestyle. DVT proph - SCDs for now, marisabel can start pharmacologic post op otherwise as above Subjective No acute events overnight. Pt states she feels ok. No pain at rest but severe pain with movement of her L hip or LLE. Does note that Dilaudid helped her in ER. Denies any numbness, tingling, bowel/bladder incontinence or other acute complaints. Interested in rehab after surgery. Review of Systems Review of Systems: Per subjective Physical Exam Constitutional: WD/WN, vitals as above Eyes: PERRL, conjunctivae normal, anicteric sclerae ENMT: external ear and nose normal, oropharynx normal Neck: trachea midline, no thyromegaly Respiratory: normal respiratory effort, lungs clear to auscultation Cardiovascular: RRR, no murmur, no edema Vessels: dorsalis pedis pulses present Chest (Breasts): Chest: normal inspection of chest Gastrointestinal (Abdomen): normal bowel sounds, soft, nontender, no hepatosplenomegaly Musculoskeletal: Extremities: + extremities abnormal to inspection (Left lower extremity slightly shortened and externally rotated, no TTP ), no cyanosis and no clubbing Skin: no rashes, warm and dry Neurologic: moves all extremities and awake; no focal motor deficits (Except LLE not tested due to pain, though dorsiflexion/plantarflexion 5/5) Psychiatric: A+Ox3, euthymic affect Lymphatic: no lymphedema Results & Data Results & Data ([facility]) Vital Signs (Past 12 Hours) Vital Signs Temp Pulse Resp BP Pulse Ox O2 Del Method O2 Flow Rate 03/17/22 08:02 Nasal Cannula 2 03/17/22 08:12 36.7 C 83 16 171/75 H 97 Nasal Cannula 2 Resident Activity Tracking Resident Involvement: Resident Care Provided Care Provided: Adult Hospital Medicine
--- NOTE | 2022-03-17 15:46 | Anesthesiology Consultation ---
Date of Service March 17, 2022 Assessment & Plan (1) Encounter for pre-operative examination: Chart Review Chart Review: Acceptable Risk for Surgery History Surgery Operation Date: 03/17/22 07:00 Proposed Procedures p Left Hip Hemiarthroplasty - Richie Law M.D. Height/Weight Height: 5 ft 6 in Weight: 139.1 kg Allergies Allergy/AdvReac Type Severity Reaction Status Date / Time No Known Allergies Allergy Verified 03/16/22 14:49 Medications Home Medications Medication Instructions Recorded Confirmed Last Taken atorvastatin 80 mg tablet 80 mg PO DAILY 03/16/22 03/16/22 Unknown clopidogrel 75 mg tablet 75 mg PO DAILY 03/16/22 03/16/22 Unknown empagliflozin 10 mg tablet 10 mg PO DAILY 03/16/22 03/16/22 Unknown (Jardiance) furosemide 20 mg tablet 20 mg PO DAILY PRN weight gain of 03/16/22 03/16/22 Unknown 2-3 lbs hydrochlorothiazide 25 mg tablet 25 mg PO DAILY 03/16/22 03/16/22 Unknown insulin glargine 100 unit/mL (3 80 unit subcut QAM 03/16/22 03/16/22 Unknown mL) subcutaneous pen (Lantus Solostar U-100 Insulin) lisinopril 40 mg tablet 40 mg PO QAM 03/16/22 03/16/22 Unknown metformin 1,000 mg tablet 1,000 mg PO BID 03/16/22 03/16/22 Unknown metoprolol tartrate 50 mg tablet 50 mg PO BID 03/16/22 03/16/22 Unknown Active Medications Generic Name Dose Route Start Last Admin Trade Name Bird PRN Reason Stop Dose Admin Atorvastatin Calcium 80 mg 03/17/22 09:00 03/17/22 08:06 Atorvastatin 40 Mg Tab PO 04/16/22 08:59 80 mg DAILY DUSTIN Administration Clopidogrel Bisulfate 75 mg 03/17/22 09:00 03/17/22 08:06 Clopidogrel Bisulfate 75 Mg Tab PO 04/16/22 08:59 75 mg DAILY DUSTIN Administration Hydrochlorothiazide 25 mg 03/17/22 09:00 03/17/22 08:06 Hydrochlorothiazide 25 Mg Tab PO 04/16/22 08:59 25 mg DAILY DUSTIN Administration Lactated Ringer's 1,000 mls @ 80 mls/hr 03/16/22 18:23 03/17/22 08:06 Lr IV 04/15/22 18:22 80 mls/hr .[id number] DUSTIN Administration Insulin Aspart 0 units 03/17/22 06:00 03/17/22 11:53 Insulin Aspart Per Unit SC 04/16/22 05:59 Not Given Q6 DUSTIN Insulin Glargine 50 units 03/17/22 09:00 03/17/22 08:05 Lantus Per Unit Charge SQ 04/16/22 08:59 Not Given QAM DUSTIN Lisinopril 40 mg 03/17/22 09:00 03/17/22 08:06 Lisinopril 40 Mg Tab PO 04/16/22 08:59 40 mg QAM DUSTIN Administration Metoprolol Tartrate 50 mg 03/16/22 21:00 03/17/22 08:06 Metoprolol Tartrate 50 Mg Tab PO 04/15/22 20:59 50 mg BID DUSTIN Administration Senna/Docusate Sodium 2 tab 03/16/22 21:00 03/16/22 20:15 Docusate Sodium/Senna 50/8.6mg Tab PO 04/15/22 20:59 Not Given HS DUSTIN Past Medical History Medical History Diabetes mellitus type 2 in obese History of CVA (cerebrovascular accident) HTN (hypertension), benign Hyperlipidemia Obesity ARCELIA (obstructive sleep apnea) Osteopenia Past Family History Family History Other Family history non-contributory Past Surgical History Surgical History History of cholecystectomy History of hysterectomy History of sinus surgery History of tonsillectomy Social History Smoking Status: Never smoker Hx Alcohol Use: No Hx Substance Use: No Physical Exam Vital Signs Last Vital Signs Temp 36.7 C 03/17/22 08:12 Pulse 83 03/17/22 08:12 Resp 16 03/17/22 08:12 BP 171/75 H 03/17/22 08:12 Pulse Ox 97 03/17/22 08:12 O2 Del Method 03/17/22 08:12 O2 Flow Rate 2 03/17/22 08:12 Testing Laboratory Results 03/17/22 06:01 03/17/22 06:01 PT 10.6 Seconds (9.0-12.0) 03/16/22 11:34 INR 1.0 (0.9-1.1) 03/16/22 11:34 Hemoglobin A1c 7.3 % (4.5-5.6) H 03/17/22 06:01 Blood Type A Positive 03/16/22 19:24 Antibody Screen NEGATIVE 03/16/22 19:24 03/17/22 03/17/22 11:46 05:37 POC Glucose 123 H 113 H Electrocardiogram Date: 03/16/22 Findings: + NSR @ (80) Chest X-Ray Date: 03/16/22 Findings: + NAD and + cardiomegaly
[2022-03-17] MEDS ORDERED: ATROPINE SULFATE 0.1 MG/ML 10ML SYR IV PRN (16:06)
[2022-03-17] MEDS ORDERED: HYDROmorphone INJ 1 MG/ML SYRINGE IV PRN (16:06)
[2022-03-17] MEDS ORDERED: PROMETHAZINE HCL 6.25 MG in SODIUM CHLORIDE 0.9% 50 ML IV PRN (16:06)
[2022-03-17] MEDS ORDERED: LABETALOL HCL IV 5 MG/ML 20ML IV PRN (16:06)
[2022-03-17] MEDS ORDERED: ONDANSETRON INJ 2 MG/ML 2 ML VIAL IV PRN ×2 (16:06→20:50)
[2022-03-17] MEDS ORDERED: fentaNYL citrate 100 MCG/2 ML VIAL ONE ×2 (16:10→17:56)
--- NOTE | 2022-03-17 16:23 | History & Physical Bridge Note ---
Date of Service March 17, 2022 History & Physical Bridge Note I have examined the patient, reviewed the History & Physical and in the interval since the performance of the History & Physical I have noted the following changes of clinical significance: no changes noted
[2022-03-17] MEDS ORDERED: BUPIVACAINE 0.5 % 5 MG/1 ML MPF 30ML VIAL ONE (16:33)
[2022-03-17] MEDS ORDERED: LIDOCAINE 1% LOCAL 20 ML VIAL ONE (16:33)
[2022-03-17] MEDS ORDERED: MIDAZOLAM HCL 1 MG/ML 2ML VIAL ONE (16:41)
[2022-03-17] MEDS ORDERED: ROCURONIUM BROMIDE 10 MG/ML 5 ML VIAL IV ONE ×8 (17:56)
[2022-03-17] MEDS ORDERED: PROPOFOL IV EMULSION 10 MG/ML 20 ML VIAL IV ONE (17:56)
[2022-03-17] MEDS ORDERED: ONDANSETRON INJ 2 MG/ML 2 ML VIAL ONE (17:56)
[2022-03-17] MEDS ORDERED: PHENYLEPHRINE HCL 10 MG/ML VIAL ONE (18:45)
[2022-03-17] MEDS ORDERED: NEOSTIGMINE METHYLSULFATE 1 MG/ML 10ML VIAL ONE (18:50)
[2022-03-17] MEDS ORDERED: GLYCOPYRROLATE 0.2 MG/ML VIAL ONE (18:50)
--- NOTE | 2022-03-17 19:07 | Billing Data ---
Date of Service March 17, 2022 Coding Level of Care Code 98827 Subseq Hosp Care Lvl 3
--- NOTE | 2022-03-17 19:36 | Post Operative Brief Note ---
Immediate Post Op Note v1 Date of Surgery March 17, 2022 Pre & Post Diagnosis Operation Date: 03/17/22 07:00 Pre-Op Diagnosis: Left displaced femoral neck fracture Post-Op Diagnosis: Left displaced femoral neck fracture I identified the patient and participated in the time-out.: Yes Procedure Operation Date: 03/17/22 07:00 Actual Procedures p Left Hip Hemiarthroplasty, Uncemented(Left) - Richie Law M.D. Surgeon Richie Law Supervisor Finishing Stan Jiménez PA-C Estimated Blood Loss 150 Findings Consistent with Post-Op Diagnosis Drains Otero Catheter (otero in place from inpatient room) and Hemovac Drain
--- NOTE | 2022-03-17 19:49 | Operative Report ---
Post Operative Report Pre & Post Diagnosis Operation Date: 03/17/22 07:00 Pre-Op Diagnosis: Left hip displaced femoral neck fracture Post-Op Diagnosis: Left hip displaced femoral neck fracture, morbid obesity I identified the patient and participated in the time-out.: Yes Procedure Operation Date: 03/17/22 07:00 Actual Procedures Left hip hemiarthroplasty for displaced femoral neck fracture (97930) - Richie Law M.D. Surgeon Richie Law Marketing/Sales Person Stan Jiménez PA-C Estimated Blood Loss 150 Findings Consistent with Post-Op Diagnosis Specimens None Drains Medium Hemovac x 1 Anesthesia Type General Complications none Disposition Disposition: Recovery Room Indications Ms. Rehman is a 62-year-old female who injured her left hip during a ground- level fall. History, clinical exam, and imaging were consistent with the above diagnosis. Risks, benefits, and alternatives of surgery were explained in detail. The patient understood all this and wished to proceed. Description of Procedure Components implanted: Biomet Echo Bi-Metric press-fit [id number] Standard Femoral Stem 47mm RingLoc Bi-Polar Shell with +3mm Neck Patient was identified in the preoperative holding area. Operative extremity was marked. Patient was then brought back to the operating room, and general anesthesia was induced without complication. Appropriate weight-based dose of Ancef was infused intravenously for antibiotic prophylaxis. Patient was then turned in the lateral decubitus position with the left hip up. Immediately n oted was massive obesity with a extremely large pannus that made even positioning extremely difficult. The hip positioner was applied to hold the pelvis stable, but this was very hard to place due to her massive pannus and still allow adequate flexion of the hip for intraoperative maneuvering and hip dislocation/reduction but. Axillary roll was placed and all bony prominences were well padded. The left leg was then prepped and draped in a standard sterile fashion using Chlorhexidine prep. I made an incision over the lateral aspect of the hip for a posterolateral approach. I then dissected through subcutaneous tissues down to the iliotibial band. Her adipose tissue layer was impressively thick, approximately 10 cm between the skin and the iliotibial band, requiring significant elongation of the incision to at least double the normal length. When the iliotibial band was finally located, it was divided in line with its fibers at the posterior third of the greater trochanter. Greater trochanteric bursectomy was then performed to expose the posterolateral aspect of the hip. I released the piriformis tendon and short external rotators off of their attachment point at the posterolateral aspect of the greater trochanter. Visualization was extraordinarily difficult due to her massive adipose tissue layer. These tendons was tagged with #2 FiberWire sutures for later repair. I then made a T-capsulotomy of the posterior hip joint capsule. The femoral neck fracture was then identified. Comminuted fracture fragments were removed as they were encountered. I then marked the femoral neck about 1 cm proximal to the lesser trochanter; again visualization of this cut position was extremely difficult due to her adipose tissue layer. I then made the proximal femoral cut in line with the angle given by the proximal femoral resection guide. Femoral neck fracture fragments were then removed proximal to the neck cut. The femoral head was then removed and sized. Ligamentum teres was resected as much as could be visualized from the depth of the acetabulum and the acetabulum was copiously irrigated with sterile saline to insure that there were no remaining bone fragments. I then placed an appropriately-sized trial head into the acetabulum. It seated fully, had free range of motion, and had a good suction seal. I then used the box osteotome to remove a rectangle of bone at the posterolateral femur in line with the femoral canal to ensure that I was completely lateralized into the medial wall of the greater trochanter. Canal finder was then used down the center of the femoral canal. I then used a lateralizing reamer to ensure that I was completely lateralized to avoid varus positioning of the implant. I then sequentially reamed with the canal reamers until I got good cortical chatter. I then sequentially broached until I achieved good cortical fit. The final femoral stem was impacted into place. This showed excellent rotational stability. I then trialed with various neck lengths on the femoral stem while taking the hip through full range of motion. I selected a neck length that gave good stability of the hip through full range of motion, including in flexion, adduction, and internal rotation, as well as good range of motion in flexion and extension, and equal leg lengths. I then removed the trial femoral head and impacted the final femoral head onto the Steinberg taper of the femoral stem. I then again reduced the hip and took it through full range of motion. Again, there was excellent stability of the hip with full range of motion. I was then satisfied with the procedure. The wound was copiously irrigated with sterile saline via pulsatile irrigation. I then closed the posterior capsulotomy with #2 FiberWire suture. I then made three drill holes in the posterior aspect of the greater trochanter and passed the previously placed FiberWire sutures in the piriformis tendon and short external rotators through these drill holes. The tendons were reapproximated and tied with the hip held in external rotation. I then closed the iliotibial band with a #1 Vicryl suture as a tacking stitch followed by a running #0 V-Lock suture. I then reapprox imated the extremely thick adipose tissue layer with multiple layers of #0 V- Lock suture to decrease space and hopefully decrease the incidence of postoperative seroma formation. Deep dermal tissue was then closed with 2-0 V- Lock, and skin was closed with peewee. Wound bed was then anesthetized with a 50-50 mixture of 1% lidocaine and 0.5% Marcaine without epinephrine. Sterile dressings were then applied with Adaptic, sterile gauze, ABD pad, and foam tape. Drapes were then removed and a hip abduction pillow was placed. The patient was then transferred over to the stretcher and taken to the Post-Anesthesia Care Unit in stable condition. There were no immediate complications from the procedure. I was present and scrubbed for the entire procedure. Due to the complex nature of the procedure, the entire surgery was performed with the operational assistance of Stan Jiménez PA-C. The assistant front end manager, under direct supervision, was involved in the performance of all aspects of the joselito gical procedure including patient positioning, tissue retraction, hemostasis, wound closure, and dressing application. This was an extraordinarily difficult hip hemiarthroplasty procedure, largely du e to the patient's morbid obesity with a BMI of 50. She had a massive adipose tissue layer, requiring an extensile incision at least double the normal length. Intraoperative visualization was extraordinarily difficult, and this case took almost 3 times longer than normal to complete. This procedure therefore qualifies for a 22 modifier. I attest to the content of the Intraoperative Record and any orders documented therein. Any exceptions are noted below.
[2022-03-17] MEDS ORDERED: bisacodyL 10 MG SUPP PR PRN (20:50)
[2022-03-17] MEDS ORDERED: NALOXONE HCL 0.4 MG/1 ML VIAL/CARP IV PRN (20:50)
[2022-03-17] MEDS ORDERED: MAGNESIUM HYDROXIDE SUSP 30 ML UDC PO PRN (20:50)
[2022-03-17] MEDS ORDERED: SODIUM CHLORIDE 0.9% 1000ML 1,000 ML IV SCH (20:50)
--- NOTE | 2022-03-17 21:01 | Anesthesiology Progress Note ---
Date of Service March 17, 2022 Anesthesia Post Procedure Vital Signs Vital Signs: Temp Pulse Pulse Resp BP Pulse Ox O2 Del Method 03/17/22 20:05 67 19 97/58 L 94 Nasal Cannula 03/17/22 19:55 72 16 102/55 L 98 Oxymask 03/17/22 19:45 73 17 134/51 L 98 Oxymask 03/17/22 20:12 69 16 103/49 L 93 Nasal Cannula 03/17/22 19:38 37 C 74 14 124/57 L 96 Oxymask 03/17/22 15:47 36.7 C 72 16 182/76 H 94 Nasal Cannula 03/17/22 15:48 37.8 C H 88 22 163/85 H 92 Room Air 03/17/22 08:02 Nasal Cannula 03/17/22 08:12 36.7 C 83 16 171/75 H 97 Nasal Cannula 03/16/22 22:23 36.9 C 69 18 188/95 H 95 Nasal Cannula O2 Flow Rate 03/17/22 20:05 2 03/17/22 19:55 4 03/17/22 19:45 6 03/17/22 20:12 2 03/17/22 19:38 10 03/17/22 15:47 2 03/17/22 15:48 03/17/22 08:02 2 03/17/22 08:12 2 03/16/22 22:23 2 Pain Intensity Left Hip: Pain Intensity: 2 Transfer of Care Handoff Completed per policy Notes Mental Status: alert / awake / arousable Patient Amnestic to Procedure: Yes Nausea / Vomiting: adequately controlled Pain: adequately controlled Airway Patency, RR, SpO2: stable & adequate BP & HR: stable & adequate Hydration State: stable & adequate Anesthetic Complications: no major complications apparent
[2022-03-17] MEDS: DOCUSATE SODIUM/SENNA 50/8.6MG TAB PO SCH (21:20)
[2022-03-17] MEDS: DOCUSATE SODIUM 100 MG CAP PO SCH (21:28)
[2022-03-17] MEDS: SENNA 8.6 MG TAB PO SCH (21:28)
[2022-03-17] MEDS: ACETAMINOPHEN 500 MG TAB PO SCH (21:29)
--- NOTE | 2022-03-17 21:45 | XRay Report ---
SINGLE VIEW PELVIS; SINGLE VIEW LEFT HIP CLINICAL HISTORY: Postoperative examination. FINDINGS: An AP portable view of the hips and pelvis with a crosstable lateral portable view of the l eft hip are compared to study dated 03/16/2022. A left hip arthroplasty is in near-anatomic alignment. A single cortical lag screw transfixes the acetabular cup. No acute fracture is identified. There are expected postoperative changes overlying the left hip including skin clips, mild degenerative change is noted in the right hip. Subcutaneous gas, a surgical drain, and soft tissue swelling. IMPRESSION: Expected postoperative findings status post left hip arthroplasty. No acute fracture is s een. ACT 112: Negative or not required by law. Electronically signed by: Juancho Maxwell M.D. 03/17/2022 9:44 PM
[2022-03-18] MEDS: ceFAZolin 2000MG 2,000 MG/15 ML SYR IV SCH ×2 (00:24→09:22)
[2022-03-18] MEDS: oxyCODONE HCL IR 5 MG TAB (IMMEDIATE RELEASE) PO PRN (04:22)
[2022-03-18] MEDS: ACETAMINOPHEN 500 MG TAB PO SCH ×3 (05:49→20:45)
[2022-03-18] MEDS: ATORVASTATIN 40 MG TAB PO SCH (08:18)
[2022-03-18] MEDS: hydroCHLOROthiazide 25 MG TAB PO SCH (08:18)
[2022-03-18] MEDS: METOPROLOL TARTRATE 50 MG TAB PO SCH ×2 (08:18→20:44)
[2022-03-18] MEDS: MULTIVITAMIN TAB PO SCH (08:19)
[2022-03-18] MEDS: DOCUSATE SODIUM 100 MG CAP PO SCH ×2 (08:21→20:45)
[2022-03-18] MEDS: LANTUS PER UNIT CHARGE SQ SCH (09:01)
[2022-03-18] MEDS: INSULIN ASPART PER UNIT SC SCH ×4 (09:01→20:50)
[2022-03-18 09:58] LABS: Basophils # (auto) 0.07 K/uL (0-0.2); Basophils % (auto) 0.5 %; Eosinophils # (auto) 0.24 K/uL (0-0.50); Eosinophils % (auto) 1.6 %; Hematocrit (blood only) 37.8 % (34.1-44.9); Hemoglobin 11.9 g/dl (12.0-16.0); Immature Granulocytes # (auto) 0.07 K/uL (0.00-0.02); Immature Granulocytes % (auto) 0.5 %; Lymphocytes # (auto) 2.13 K/uL (1.2-3.4); Lymphocytes % (auto) 13.9 %; Mean Corpuscular Hgb Conc 31.5 g/dL (32.0-36.0); Mean Corpuscular Volume 76.2 fL (80.0-100.0); Mean Platelet Volume 11.3 fL (9.4-12.3); Monocytes # (auto) 1.78 K/uL (0.24-0.82); Monocytes % (auto) 11.7 %; Neutrophils # (auto) 10.98 K/uL (1.4-6.5); Neutrophils % (auto) 71.8 %; Nucleated RBC # (auto) 0.02 K/uL (0-0); Nucleated RBC % (auto) 0.1 %; Platelet Count 239 K/uL (130-400); RDW Coefficient of Variation 15.2 % (11.5-14.5); RDW Standard Deviation 41.1 fL (36.4-46.3); Red Blood Count 4.96 M/uL (3.93-5.22); White Blood Count 15.27 K/ul (4.8-10.8)
--- NOTE | 2022-03-18 09:58 | Hospitalist Progress Note ---
Date of Service March 18, 2022 Assessment & Plan (1) Hip fracture: Plan: -Likely osteoporotic fracture from mechanical fall -XR- mildly displaced left subcapital hip fracture -Orthopedics consulted -Uncomplicated left hip hemiarthroplasty completed on 03/17, now POD1 -Pain regimen ordered with Tylenol, oxycodone, Dilaudid PRN -PT/OT evaluations pending, will pursue rehab placement (2) HTN (hypertension), benign: Plan: Mildly hypertensive secondary to pain, improved with pain control Continue home HCTZ, lisinopril, metoprolol Monitor blood pressures- normotensive at this time, 100s/60s postoperatively but stable BP 93/59 this morning was likely orthostatic in nature, encouraged oral hydration- will administer/hold BP medications pending pressure checks (3) Diabetes mellitus type 2 in obese: Plan: Is on Lantus and Jardiance as well as metformin at home Hold home Jardiance and metformin -Lantus 50 units once daily while she is n.p.o. and in the hospital-adjust as needed -A1C 7.3 -Accu-Cheks, NovoLog sliding scale -Diabetic diet when allowed to eat (4) Osteopenia: Plan: Not on medication for this at home but recently had a bone density scan as an outpatient -Vitamin D level 38, low-normal -Would likely benefit from bisphosphonate therapy as outpatient -May discharge on vitamin D supplementation due to osteoporotic fracture (5) Obesity: Plan: BMI 49.5 Will discuss weight loss and veterans' counselor on lifestyle modification (6) History of CVA (cerebrovascular accident): Plan: History of CVA when she lived in [place], [place] many years ago with mild residual left hemiparesis Continue home Plavix, statin, BP control, diabetes control (7) Hyperlipidemia: Plan: Continue statin (8) ARCELIA (obstructive sleep apnea): Plan: Patient longer wears her CPAP at home due to improper fitting and actually gave it away to a friend -She is agreeable to wear CPAP while here-ordered for nightly Plan Diet- Carb consistent DVT prophylaxis- Lovenox 40 mg BID Disposition- medical/surgical Full code She designates her friend, Enriqueta, as her point of contact, but she does have a sister who would be her next of kin for decision-making capability if needed. Her sister's name is Cynthia Carpenter and her phone number is [phone] Admission and Anticipated Discharge Date Admission Date: March 16, 2022 Supervising Physician Co-Signing Physician Notes I personally examined the patient and verified all craig points of history and exam, discussed case, and agree with decision making with Dr Johnston Pain control is reasonable. Did have leg cramps through the night. Vitals noted, in general she is awake and alert pleasant no distress. HEENT normocephalic atraumatic mucous membranes moist. Breathing unlabored no accessory muscle use good effort. Skin shows no rashes no pallor or icterus. Neuro without focal deficits. Hip fractureosteopenia on most recent DEXA scan, have to assume osteoporotic overall given fracture with ground-level fall, and recent shoulder fracture with a similar ground-level fall. Vitamin D adequate at 40 right nowwould want to see what it is like in the middle of winter. Probably would start bisphosphonate in about a month obviously we will be deferring to PCP in this regard. Type 2 [id number] 7.3. Extensive discussion on lifestyle on 03/17. DVT proph -start Lovenox tonight otherwise as above Subjective No acute events overnight. Morning dose lisinopril held for 93/59 BP- pt does report feeling slightly lightheaded but notes this only occurred when she was being sat up in bed this morning. Surgery completed yesterday. Pt feels well, denies any L hip pain at rest, only occurs when she moves- 4/10 severity. Notes that Tylenol did relieve her pain. Review of Systems Review of Systems: Per subjective Physical Exam Constitutional: WD/WN, vitals as above Eyes: PERRL, conjunctivae normal, anicteric sclerae ENMT: external ear and nose normal, oropharynx normal Neck: trachea midline, no thyromegaly Respiratory: normal respiratory effort, lungs clear to auscultation Cardiovascular: RRR, no murmur, no edema Vessels: dorsalis pedis pulses present Chest (Breasts): Chest: normal inspection of chest Gastrointestinal (Abdomen): normal bowel sounds, soft, nontender, no hepatosplenomegaly Musculoskeletal: Extremities: + extremities abnormal to inspection (Left lower extremity slightly shortened and externally rotated, no TTP ), no cyanosis and no clubbing Skin: no rashes, warm and dry Neurologic: moves all extremities and awake; no focal motor deficits (Except LLE not tested due to pain, though dorsiflexion/plantarflexion 5/5) Psychiatric: A+Ox3, euthymic affect Lymphatic: no lymphedema Results & Data Results & Data ([facility]) Vital Signs (Past 12 Hours) Vital Signs Temp Pulse Resp BP Pulse Ox O2 Del Method O2 Flow Rate 03/18/22 08:00 Room Air, Nasal Cannula 2 03/18/22 08:03 36.9 C 101 H 16 93/59 L 94 Nasal Cannula 3 03/18/22 05:47 92 H 03/18/22 04:09 37.0 C 108 H 18 108/68 94 Nasal Cannula 03/18/22 00:05 Nasal Cannula 2 03/17/22 23:54 36.9 C 93 H 18 105/66 96 Nasal Cannula 03/17/22 22:52 37.1 C 93 H 18 100/65 95 Nasal Cannula Resident Activity Tracking Resident Involvement: Resident Care Provided Care Provided: Adult Hospital Medicine
[2022-03-18 10:29] LABS: BUN Creatinine Ratio 19.6 (10-20); Calcium 8.4 mg/dl (8.5-10.1); Creatinine Clr Calc Pharmacy 84.4 ml/min; Est GFR (African American) 71.5 ml/min; Est GFR (Non-African American) 61.7 ml/min; Potassium 4.1 mmol/L (3.5-5.1)
[2022-03-18] MEDS: lisinopril 40 MG TAB PO SCH (13:04)
--- NOTE | 2022-03-18 14:14 | Orthopedic Progress Note ---
Date of Service March 18, 2022 Assessment & Plan (1) Left displaced femoral neck fracture: Plan: POD 1 s/p Left Bipolar Hemiarthroplasty PT/OT protocols. WBAT. Hip Precautions. DVT prophylaxis - Will discuss with Med service. Restart Plavix tomorrow Pain management as written. DC planning - Will likely need [facility]. Admission and Anticipated Discharge Date Admission Date: March 16, 2022 Subjective POD 1 Pt sitting up in her chair at bedside. Having some pain off and on in the operative hip at times. States she was having some muscle spasms as well. No other complaints currently. Worked with PT today to stand up. H/O of CVA with L sided weakness. [place] it was difficult but she was able to get OOB to chair. Physical Exam Physical Exam: Dressings C/D/I. Calves soft, NT. Mild decreased sensation in the left foot which is normal for her. Also has LLE weakness secondary to CVA in past. Able to DF the left foot but states the foot is weak due to stroke. No increase in symptoms since surgery. Hip appears located. HV drainage 90ml Results & Data ([facility]) Vital Signs (Past 12 Hours) Vital Signs Temp Pulse Resp BP Pulse Ox O2 Del Method O2 Flow Rate 03/18/22 08:00 Room Air, Nasal Cannula 2 03/18/22 08:03 36.9 C 101 H 16 93/59 L 94 Nasal Cannula 3 03/18/22 05:47 92 H 03/18/22 04:09 37.0 C 108 H 18 108/68 94 Nasal Cannula Laboratory Results Laboratory Results WBC 15.27 K/ul (4.8-10.8) H 03/18/22 09:20 RBC 4.96 M/uL (3.93-5.22) 03/18/22 09:20 Hgb 11.9 g/dl (12.0-16.0) L 03/18/22 09:20 Hct 37.8 % (34.1-44.9) 03/18/22 09:20 MCV 76.2 fL (80.0-100.0) L 03/18/22 09:20 MCH 24.0 pg (25.0-34.0) L 03/18/22 09:20 MCHC 31.5 g/dL (32.0-36.0) L 03/18/22 09:20 RDW Std Deviation 41.1 fL (36.4-46.3) 03/18/22 09:20 RDW Coeff of Tato 15.2 % (11.5-14.5) H 03/18/22 09:20 Plt Count 239 K/uL (130-400) 03/18/22 09:20 MPV 11.3 fL (9.4-12.3) 03/18/22 09:20 Immature Gran % (Auto) 0.5 % 03/18/22 09:20 Neut % (Auto) 71.8 % 03/18/22 09:20 Lymph % (Auto) 13.9 % 03/18/22 09:20 [place] % (Auto) 11.7 % 03/18/22 09:20 Eos % (Auto) 1.6 % 03/18/22 09:20 Baso % (Auto) 0.5 % 03/18/22 09:20 Neut # (Auto) 10.98 K/uL (1.4-6.5) H 03/18/22 09:20 Lymph # (Auto) 2.13 K/uL (1.2-3.4) 03/18/22 09:20 [place] # (Auto) 1.78 K/uL (0.24-0.82) H 03/18/22 09:20 Eos # (Auto) 0.24 K/uL (0-0.50) 03/18/22 09:20 Baso # (Auto) 0.07 K/uL (0-0.2) 03/18/22 09:20 Immature Gran # (Auto) 0.07 K/uL (0.00-0.02) H 03/18/22 09:20 Absolute Nucleated RBC 0.02 K/uL (0-0) H 03/18/22 09:20 Nucleated RBC % (auto) 0.1 % 03/18/22 09:20 PT 10.6 Seconds (9.0-12.0) 03/16/22 11:34 INR 1.0 (0.9-1.1) 03/16/22 11:34 Sodium 137 mmol/L (136-145) 03/18/22 09:20 Potassium 4.1 mmol/L (3.5-5.1) 03/18/22 09:20 Chloride 99 mmol/L (98-107) 03/18/22 09:20 Carbon Dioxide 31 mmol/L (21-32) 03/18/22 09:20 Anion Gap 7 (3-11) 03/18/22 09:20 BUN 19 mg/dl (6-23) 03/18/22 09:20 Creatinine 0.97 mg/dl (0.6-1.2) D 03/18/22 09:20 Est Cr Clr Drug Dosing 84.4 ml/min 03/18/22 09:20 Est GFR ( Amer) 71.5 ml/min 03/18/22 09:20 Est GFR (Non-Af Amer) 61.7 ml/min 03/18/22 09:20 BUN/Creatinine Ratio 19.6 (10-20) 03/18/22 09:20 Glucose 156 mg/dl (70-99(Fasting)) H 03/18/22 09:20 POC Glucose 174 mg/dl (70-99) H 03/18/22 11:47 Estimat Average Glucose 163 mg/dl 03/17/22 06:01 Hemoglobin A1c 7.3 % (4.5-5.6) H 03/17/22 06:01 Calcium 8.4 mg/dl (8.5-10.1) L 03/18/22 09:20 Magnesium 1.7 mg/dl (1.7-2.4) 03/16/22 11:34 25-OH Vitamin D Total 40.3 ng/ml (30-100) 03/17/22 06:01 Hepatitis C Ab (EIA) NON-REACTIVE (NON-REACTIVE) 03/16/22 19:24 Hep C Ab Signal/Cutoff 0.12 (<1.00) 03/16/22 19:24 SARS-CoV-2, RNA, NAAT NEGATIVE (NEGATIVE) 03/16/22 13:24 Blood Type A Positive 03/16/22 19:24 Antibody Screen NEGATIVE 03/16/22 19:24 Impressions Femur X-Ray 03/16/22 10:37 SINGLE VIEW PELVIS; 2 VIEWS LEFT HIP; 2 VIEWS LEFT FEMUR CLINICAL HISTORY: Fall with left hip injury. FINDINGS: An AP view of the pelvis with AP and crosstable lateral views of the left hip and femur are obtained. No prior studies are available for comparison at the time of dictation. The skeletal structures are osteopenic. There is an impacted and mildly displaced fracture of the subcapital left femur with overlying soft tissue edema. The distal left femur appears intact. No fracture seen involving the right hip or the bony pelvis. Mild degenerative change and joint space narrowing is present in both hips. There is degenerative sclerosis of the sacroiliac joints. There is atherosclerotic calcification of the femoral arteries. Phleboliths are noted in the pelvis. IMPRESSION: 1. Impacted and mildly displaced subcapital fracture of the left proximal femur. 2. The distal left femur appears intact. 3. No fracture is seen involving the right hip or the bony pelvis. Electronically signed by: Juancho Maxwell M.D. 03/16/2022 12:59 PM Electronically signed by: Mandeep Smith M.D. 03/16/2022 1:06 PM Hip/Pelvis X-Ray 03/17/22 19:24 SINGLE VIEW PELVIS; SINGLE VIEW LEFT HIP CLINICAL HISTORY: Postoperative examination. FINDINGS: An AP portable view of the hips and pelvis with a crosstable lateral portable view of the left hip are compared to study dated 03/16/2022. A left hip arthroplasty is in near-anatomic alignment. A single cortical lag screw transfixes the acetabular cup. No acute fracture is identified. There are expected postoperative changes overlying the left hip including skin clips, mild degenerative change is noted in the right hip. Subcutaneous gas, a surgical drain, and soft tissue swelling. IMPRESSION: Expected postoperative findings status post left hip arthroplasty. No acute fracture is seen. ACT 112: Negative or not required by law. Electronically signed by: Juancho Maxwell M.D. 03/17/2022 9:44 PM
[2022-03-18] MEDS: CALCIUM CARBONATE 500 MG CHEWABLE TAB PO SCH ×2 (16:13→20:43)
--- NOTE | 2022-03-18 18:18 | Billing Data ---
Date of Service March 18, 2022 Coding Level of Care Code 67664 Subseq Hosp Care Lvl 3
[2022-03-18] MEDS: MAGNESIUM SULFATE / D5W 1 GM/100 ML BAG IV SCH ×2 (20:37→22:15)
[2022-03-18] MEDS: SENNA 8.6 MG TAB PO SCH (20:44)
[2022-03-18] MEDS: DOCUSATE SODIUM/SENNA 50/8.6MG TAB PO SCH (20:44)
[2022-03-18] MEDS: ENOXAPARIN INJ 40 MG/0.4 ML SYR SQ SCH (22:16)
[2022-03-19] MEDS: ACETAMINOPHEN 500 MG TAB PO SCH ×2 (06:27→13:45)
[2022-03-19] MEDS: ATORVASTATIN 40 MG TAB PO SCH (08:03)
[2022-03-19] MEDS: CALCIUM CARBONATE 500 MG CHEWABLE TAB PO SCH ×2 (08:04→13:46)
[2022-03-19] MEDS: ENOXAPARIN INJ 40 MG/0.4 ML SYR SQ SCH (08:04)
[2022-03-19] MEDS: DOCUSATE SODIUM 100 MG CAP PO SCH (08:04)
[2022-03-19] MEDS: METOPROLOL TARTRATE 50 MG TAB PO SCH (08:04)
[2022-03-19] MEDS: lisinopril 40 MG TAB PO SCH (08:04)
[2022-03-19] MEDS: MULTIVITAMIN TAB PO SCH (08:04)
[2022-03-19] MEDS: hydroCHLOROthiazide 25 MG TAB PO SCH (08:04)
[2022-03-19 08:28] LABS: Hematocrit (blood only) 35.3 % (34.1-44.9); Hemoglobin 11.2 g/dl (12.0-16.0); Mean Corpuscular Hemoglobin 23.9 pg (25.0-34.0); Mean Corpuscular Hgb Conc 31.7 g/dL (32.0-36.0); Mean Corpuscular Volume 75.3 fL (80.0-100.0); Mean Platelet Volume 11.5 fL (9.4-12.3); Platelet Count 211 K/uL (130-400); RDW Coefficient of Variation 14.7 % (11.5-14.5); RDW Standard Deviation 39.9 fL (36.4-46.3); Red Blood Count 4.69 M/uL (3.93-5.22); White Blood Count 13.52 K/ul (4.8-10.8)
[2022-03-19] MEDS: LANTUS PER UNIT CHARGE SQ SCH (08:59)
[2022-03-19] MEDS: INSULIN ASPART PER UNIT SC SCH ×2 (08:59→13:31)
[2022-03-19] MEDS: oxyCODONE HCL IR 5 MG TAB (IMMEDIATE RELEASE) PO PRN ×2 (09:00→13:45)
[2022-03-19 09:20] LABS: BUN Creatinine Ratio 25.4 (10-20); Calcium 8.6 mg/dl (8.5-10.1); Creatinine Clr Calc Pharmacy 122.2 ml/min; Est GFR (African American) 107.7 ml/min; Est GFR (Non-African American) 92.9 ml/min; Potassium 3.9 mmol/L (3.5-5.1)
--- NOTE | 2022-03-19 10:33 | Hospitalist Progress Note ---
Date of Service March 19, 2022 Assessment & Plan (1) Hip fracture: Plan: -Likely osteoporotic fracture from mechanical fall -XR- mildly displaced left subcapital hip fracture -Orthopedics consulted -Uncomplicated left hip hemiarthroplasty completed on 03/17, now POD2 -Pain regimen ordered with Tylenol, oxycodone, Dilaudid PRN -Continue PT/OT -Awaiting rehab placement, case management following (2) HTN (hypertension), benign: Plan: Mildly hypertensive secondary to pain earlier in stay, improved with pain control Continue home HCTZ, lisinopril, metoprolol Monitor blood pressures- normotensive at this time (3) Diabetes mellitus type 2 in obese: Plan: Is on Lantus and Jardiance as well as metformin at home Hold home Jardiance and metformin -Lantus 50 units once daily while she is n.p.o. and in the hospital-adjust as needed -A1C 7.3 -Accu-Cheks, NovoLog sliding scale -Diabetic diet when allowed to eat (4) Osteopenia: Plan: Not on medication for this at home but recently had a bone density scan as an outpatient -Vitamin D level 38, low-normal -Would likely benefit from bisphosphonate therapy as outpatient -May discharge on vitamin D supplementation due to osteoporotic fracture (5) Obesity: Plan: BMI 49.5 Will discuss weight loss and extension course counselor on lifestyle modification (6) History of CVA (cerebrovascular accident): Plan: History of CVA when she lived in [place], [place] many years ago with mild residual left hemiparesis Continue home Plavix, statin, BP control, diabetes control (7) Hyperlipidemia: Plan: Continue statin (8) ARCELIA (obstructive sleep apnea): Plan: Patient longer wears her CPAP at home due to improper fitting and actually gave it away to a friend -She is agreeable to wear CPAP while here-ordered for nightly Plan Diet- Carb consistent DVT prophylaxis- Lovenox 40 mg BID Disposition- medical/surgical Full code She designates her friend, Enriqueta, as her point of contact, but she does have a sister who would be her next of kin for decision-making capability if needed. Her sister's name is Cynthia Carpenter and her phone number is [phone] Admission and Anticipated Discharge Date Admission Date: March 16, 2022 Subjective No acute events overnight. Pt feels mostly well, denies any L hip pain at rest. Does note pain still occurs with movement but improving. Reports some b/l leg cramps worse in L > R overnight but she has been experiencing this prior to hospitalization as well. Denies other acute complaints. Review of Systems Review of Systems: Per subjective Physical Exam Constitutional: WD/WN, vitals as above Eyes: PERRL, conjunctivae normal, anicteric sclerae ENMT: external ear and nose normal, oropharynx normal Neck: trachea midline, no thyromegaly Respiratory: normal respiratory effort, lungs clear to auscultation Cardiovascular: RRR, no murmur, no edema Vessels: dorsalis pedis pulses present Chest (Breasts): Chest: normal inspection of chest Gastrointestinal (Abdomen): normal bowel sounds, soft, nontender, no hepa tosplenomegaly Musculoskeletal: Extremities: extremities normal to inspection (Left lower extremity slightly shortened and externally rotated, no TTP ); no cyanosis and no clubbing Some TTP of L hip Skin: no rashes, warm and dry Neurologic: moves all extremities and awake; no focal motor deficits (L foot dorsiflexion/plantarflexion 5/5) Psychiatric: A+Ox3, euthymic affect Lymphatic: no lymphedema Results & Data Results & Data ([facility]) Vital Signs (Past 12 Hours) Vital Signs Temp Pulse Resp BP Pulse Ox O2 Del Method O2 Flow Rate 03/19/22 08:00 Nasal Cannula 3 03/19/22 07:46 36.9 C 94 H 16 118/71 98 3 Resident Activity Tracking Resident Involvement: Resident Care Provided Care Provided: Adult Hospital Medicine
--- NOTE | 2022-03-19 10:38 | Orthopedic Progress Note ---
Date of Service March 19, 2022 Assessment & Plan (1) Left displaced femoral neck fracture: Plan: POD 2 s/p Left Bipolar Hemiarthroplasty PT/OT protocols. WBAT. Hip Precautions. DVT prophylaxis - Enoxaparin bid Pain management as written. DC planning - Will likely need [facility]. Admission and Anticipated Discharge Date Admission Date: March 16, 2022 Supervising Physician Co-Signing Physician Notes Patient seen and examined. Agree with KARLA Jiménez's note as above. Patient was out of bed sitting in chair yesterday, but has not ambulated yet. She reports quite a bit of pain along her lateral hip incision line. She denies any pain in her groin. She does have preoperative weakness on her left side from previous stroke, and is morbidly obese, making mobilization difficult. Dressings are clean, dry, and intact. Minimal Hemovac drain output this morning, and we can plan to pull that today. Dressing changed by nursing today. I reviewed total hip precautions with her. She may weight-bear as tolerated. Follow-up with me in orthopedic surgery clinic 10 to 14 days after surgery. Please call [facility] at [phone] to make an appointment. Subjective POD 2 Pt sitting at bedside getting ready to do her PT session. No complaints this AM . Physical Exam Physical Exam: Dressings C/D/I. Calves soft, NT. Residual weakness LLE from previous CVA. Leg lengths appear equal. Results & Data ([facility]) Vital Signs (Past 12 Hours) Vital Signs Temp Pulse Resp BP Pulse Ox O2 Del Method O2 Flow Rate 03/19/22 08:00 Nasal Cannula 3 03/19/22 07:46 36.9 C 94 H 16 118/71 98 3 Laboratory Results Laboratory Results WBC 13.52 K/ul (4.8-10.8) H 03/19/22 07:49 RBC 4.69 M/uL (3.93-5.22) 03/19/22 07:49 Hgb 11.2 g/dl (12.0-16.0) L 03/19/22 07:49 Hct 35.3 % (34.1-44.9) 03/19/22 07:49 MCV 75.3 fL (80.0-100.0) L 03/19/22 07:49 MCH 23.9 pg (25.0-34.0) L 03/19/22 07:49 MCHC 31.7 g/dL (32.0-36.0) L 03/19/22 07:49 RDW Std Deviation 39.9 fL (36.4-46.3) 03/19/22 07:49 RDW Coeff of Tato 14.7 % (11.5-14.5) H 03/19/22 07:49 Plt Count 211 K/uL (130-400) 03/19/22 07:49 MPV 11.5 fL (9.4-12.3) 03/19/22 07:49 Immature Gran % (Auto) 0.5 % 03/18/22 09:20 Neut % (Auto) 71.8 % 03/18/22 09:20 Lymph % (Auto) 13.9 % 03/18/22 09:20 [place] % (Auto) 11.7 % 03/18/22 09:20 Eos % (Auto) 1.6 % 03/18/22 09:20 Baso % (Auto) 0.5 % 03/18/22 09:20 Neut # (Auto) 10.98 K/uL (1.4-6.5) H 03/18/22 09:20 Lymph # (Auto) 2.13 K/uL (1.2-3.4) 03/18/22 09:20 [place] # (Auto) 1.78 K/uL (0.24-0.82) H 03/18/22 09:20 Eos # (Auto) 0.24 K/uL (0-0.50) 03/18/22 09:20 Baso # (Auto) 0.07 K/uL (0-0.2) 03/18/22 09:20 Immature Gran # (Auto) 0.07 K/uL (0.00-0.02) H 03/18/22 09:20 Absolute Nucleated RBC 0.02 K/uL (0-0) H 03/18/22 09:20 Nucleated RBC % (auto) 0.1 % 03/18/22 09:20 PT 10.6 Seconds (9.0-12.0) 03/16/22 11:34 INR 1.0 (0.9-1.1) 03/16/22 11:34 Sodium 134 mmol/L (136-145) L 03/19/22 07:49 Potassium 3.9 mmol/L (3.5-5.1) 03/19/22 07:49 Chloride 97 mmol/L (98-107) L 03/19/22 07:49 Carbon Dioxide 32 mmol/L (21-32) 03/19/22 07:49 Anion Gap 5 (3-11) 03/19/22 07:49 BUN 17 mg/dl (6-23) 03/19/22 07:49 Creatinine 0.67 mg/dl (0.6-1.2) D 03/19/22 07:49 Est Cr Clr Drug Dosing 122.2 ml/min 03/19/22 07:49 Est GFR ( Amer) 107.7 ml/min 03/19/22 07:49 Est GFR (Non-Af Amer) 92.9 ml/min 03/19/22 07:49 BUN/Creatinine Ratio 25.4 (10-20) H 03/19/22 07:49 Glucose 150 mg/dl (70-99(Fasting)) H 03/19/22 07:49 POC Glucose 147 mg/dl (70-99) H 03/19/22 07:59 Estimat Average Glucose 163 mg/dl 03/17/22 06:01 Hemoglobin A1c 7.3 % (4.5-5.6) H 03/17/22 06:01 Calcium 8.6 mg/dl (8.5-10.1) 03/19/22 07:49 Magnesium 1.7 mg/dl (1.7-2.4) 03/16/22 11:34 25-OH Vitamin D Total 40.3 ng/ml (30-100) 03/17/22 06:01 Hepatitis C Ab (EIA) NON-REACTIVE (NON-REACTIVE) 03/16/22 19:24 Hep C Ab Signal/Cutoff 0.12 (<1.00) 03/16/22 19:24 SARS-CoV-2, RNA, NAAT NEGATIVE (NEGATIVE) 03/16/22 13:24 Blood Type A Positive 03/16/22 19:24 Antibody Screen NEGATIVE 03/16/22 19:24
--- NOTE | 2022-03-19 11:26 | Discharge Summary ---
Date of Service March 19, 2022 Admission HPI Per Admitting Provider This patient is a 62-year-old female with a history of CVA with left-sided mild hemiparesis, HTN, DM2, morbid obesity, hyperlipidemia, ARCELIA noncompliant with CPAP, and osteopenia, who presents to the ER with severe left hip pain following a fall after she slipped on hardwood floor while wearing her compression stockings today. She is visiting the area from out of town and staying with a friend of hers. She was walking into the kitchen on the hardwood floor and tried to turn to the left and her feet slipped out from under her. She landed on her left hip only. She did not lose consciousness at any point. She never felt lightheaded or had chest pain or palpitations prior to the fall. She did not hit her head or hurt any other parts of her body. She tried to get back up onto her feet but was not able to and came in by ambulance. She was found to have a left mildly displaced subcapital hip fracture on x-ray. She was mildly hypertensive but otherwise vital signs were stable. She was given IV pain medi cine and hospitalist service consulted for admission for hip fracture. Admission Exam Per Admitting Provider Constitutional: WD/WN, vitals as above Eyes: PERRL, conjunctivae normal, anicteric sclerae ENMT: external ear and nose normal, oropharynx normal Neck: trachea midline, no thyromegaly Respiratory: normal respiratory effort, lungs clear to auscultation B Cardiovascular: RRR, no murmur, no edema Vessels: dorsalis pedis pulses present Chest (Breasts): Chest: normal inspection of chest Gastrointestinal (Abdomen): normal bowel sounds, soft, nontender, no hepatosplenomegaly Musculoskeletal: Extremities: + extremities abnormal to inspection (Left lower extremity slightly shortened and externally rotated, no TTP ), no cyanosis and no clubbing Skin: no rashes, warm and dry Neurologic: moves all extremities and awake; no focal motor deficits (Except LLE not tested due to pain) Psychiatric: A+Ox3, euthymic affect Lymphatic: no lymphedema Principal Diagnosis L hip fracture Discharge Exam Constitutional WD/WN, vitals as above Eyes PERRL, conjunctivae normal, anicteric sclerae ENMT external ear and nose normal, oropharynx normal Neck trachea midline, no thyromegaly Respiratory normal respiratory effort, lungs clear to auscultation Cardiovascular RRR, no murmur, no edema Vessels: dorsalis pedis pulses present Chest (Breasts) Chest: normal inspection of chest Gastrointestinal (Abdomen) normal bowel sounds, soft, nontender, no hepatosplenomegaly Musculoskeletal Extremities: extremities normal to inspection; no cyanosis and no clubbing Skin no rashes, warm and dry Neurologic moves all extremities and awake; no focal motor deficits (L foot dorsiflexion/pl antarflexion 5/5) Psychiatric A+Ox3, euthymic affect Lymphatic no lymphedema Discharge Data Allergies Allergy/AdvReac Type Severity Reaction Status Date / Time No Known Allergies Allergy Verified 03/16/22 14:49 Consultations 03/16/22 13:22 Consult Orthopedic Surgery Routine 03/16/22 13:24 ED Decision to Admit Stat 03/16/22 18:23 Consult Anesthesiology Routine Consult Orthopedic Surgery Routine Procedures Performed Operation Date: 03/17/22 07:00 Actual Procedures p Left Hip Hemiarthroplasty, Uncemented(Left) - Richie Law M.D. Hospital Course (1) Hip fracture: -Likely osteoporotic fracture from mechanical fall -XR- mildly displaced left subcapital hip fracture -Orthopedics consulted -Uncomplicated left hip hemiarthroplasty completed on 03/17, now POD2 -Discharged to rehab at [facility] (2) HTN (hypertension), benign: Mildly hypertensive secondary to pain earlier in stay, improved with pain control Continue home HCTZ, lisinopril, metoprolol Normotensive during stay (3) Diabetes mellitus type 2 in obese: Is on Lantus and Jardiance as well as metformin at home Held home Jardiance and metformin -Lantus 50 units once daily while she is n.p.o. and in the hospital -A1C 7.3 (4) Osteopenia: Not on medication for this at home but recently had a bone density scan as an outpatient -Vitamin D level 38, low-normal -Would likely benefit from bisphosphonate therapy as outpatient (5) Obesity: BMI 49.5 Discuss weight loss and career placement services counselor on lifestyle modification (6) History of CVA (cerebrovascular accident): History of CVA when she lived in [place], [place] many years ago with mild residual left hemiparesis Continue home Plavix, statin, BP control, diabetes control (7) Hyperlipidemia: Continue statin (8) ARCELIA (obstructive sleep apnea): Patient longer wears her CPAP at home due to improper fitting and actually gave it away to a friend -CPAP nightly during stay Total Time Total Time Spent Total Time Spent (In Minutes): <30 Discharge Plan Discharge Items Patient Disposition: Transfer Inpatient Rehab Fac Reason For Visit: LEFT HIP FRACTURE Discharge Diagnosis: L hip fracture Activity: Resume your previous activity Non-emergency contact: Primary Care Provider and Surgeon Call non-emergency contact if: you have any medication questions, your symptoms worsen, your pain is worsening and you have a fever Follow-up/Referrals: PCP,NO [Primary Care Provider] - Diet: Carb Consistent or DM2 Addtl Attending Provider Instructions: You were admitted to the hospital for a left hip fracture which was repaired surgically. A discharge summary will be sent to your primary care physician to ensure continuity of care. Please bring this discharge summary with you to your next office appointment so that your provider can review it at that time. Follow-up appointments: Make a follow-up appointment with your PCP when you can. It is very important that you follow up with them shortly after discharge from the hospital. Medications: Your medication list has been reviewed and reconciled upon discharge to ensure accuracy and continuity of care. An updated list of all your medications is included with your hospital discharge paperwork. Please review this list closely, and make note of any changes. Take your medications as instructed; do not skip a dose of your medicines. Make sure all of your doctors know every medicine you are taking (including [id number] medicines, vitamins, and supplements). Call your primary care provider before taking any new medicines (including nkoy-llu-zjyepcf medicines, vitamins, and supplements), because some of these may interact with your current medications, or may make your symptoms worse. Tell your primary care provider if you cannot afford your medications. CALL 911 OR GO TO THE EMERGENCY DEPARTMENT if you experience any of the following: Sudden, severe abdominal pain or nausea/vomiting Severe chest pain, or chest pain that radiates (moves) to your jaw or arm Sudden, severe shortness of breath or difficulty breathing Thank you for allowing us to participate in your care. Addtl Concrete Vault Maker Provider Instructions: ACTIVITY RECOMMENDATIONS: SELF CARE INSTRUCTIONS AFTER HIP HEMIARTHROPLASTY Until the incision and soft tissues around your hip have healed, there is a possibility that the hip prosthesis could dislocate. A. Observe the following precautions to prevent dislocation: 1. Don't bend your hip greater than 90 degrees. 2. Avoid crossing your legs or ankles while standing or lying. 3. Sit with your feet placed 6 inches apart. 4. When sitting, keep your knees below your hips. Sit on a firm surface, avoid deep, soft chairs and couches. Use an elevated toilet seat in the bathroom. 5. Don't bend over at the waist. Use a long handled shoehorn and a sock aid to help you put on your shoes and socks. A director enterprise sales can help you knot picker cloth objects that are too high or too low to reach. 6. Keep car riding to a minimum for at least one month after surgery. B. Your balance may be shaky for a while. Use crutches or a walker until directed by your doctor. C. Use hand rails when walking on stairs. D. Wear low heeled shoes with non-slip soles. E. Be sure that your floors are free of things that could trip you - throw rugs, electrical cords, small objects. Avoid wet and waxed floors, especially with crutches and canes. F. Try to walk several times a day with rest periods between. G. Continue with all the exercises taught to you in the hospital. Again, make walking a part of your daily routine. SPECIAL CARE INSTRUCTIONS: VERY IMPORTANT TO READ AND REVIEW A. You may still be at risk for phlebitis and blood clots. 1. Wear surgical stockings (CYNTHIA hose) for 2 weeks after surgery to improve circulation and reduce swelling. 2. You will be taking Lovenox (Enoxaparin) shots for prevention of blood clots. B. You must take antibiotics before having dental work, bladder, bowel and other surgery. Your doctor will provide you with a permanent card to carry describing precautions. C. Call [facility] if you have a fever, redness or swelling around the incision, cloudy drainage from incision, or sudden increase in pain in your hip, not relieved by your regular pain medication. D. Please call the office at if you have any concerns or questions about your operation or recovery. * YOU MAY SHOWER, NO TUB BATHS UNTIL CLEARED BY YOUR DOCTOR. * WEAR CYNTHIA HOSE 20 HOURS PER DAY FOR 2 WEEKS. * YOU SHOULD USE A WALKER OR CRUTCHES FOR 2-4 WEEKS. THIS WILL HELP PREVENT STRAIN ON YOUR HIP MUSCLE AND ALLOW IT TO HEAL PROPERLY. YOU MAY WEAN TO A CANE TOLERATED. * MOST PATIENTS WILL HAVE HOME NURSING FOR THERAPY. IF YOU DECIDE TO DO OUTPATIENT PHYSICAL THERAPY, PLEASE SCHEDULE THIS 3 TIMES PER WEEK. * DAILY DRESSING CHANGES FOR THE FIRST WEEK. IF THE WOUND REMAINS DRY, YOU CAN CHANGE THE DRESSING EVERY OTEHR DAY. PLEASE CALL THE OFFICE FOR ANY QUESTIONS YOU MAY HAVE ABOUT YOUR WOUND. . FOLLOW UP VISIT: If appointment is not already scheduled: Please call [facility] to make a follow-up appointment for 2 weeks after your surgery at . Pending Studies at Discharge: No Stand-Alone Forms: My [facility] Skilled Items Patient informed of condition?: Yes DNR: No Discharge Level of Care: Acute rehab Communicable Disease: No Discharge Prognosis: Stable Lines: None Urinary Catheter: No Medications and DC Order Prescriptions: Continued atorvastatin 80 mg tablet 80 mg PO DAILY clopidogrel 75 mg tablet 75 mg PO DAILY metformin 1,000 mg tablet 1,000 mg PO BID metoprolol tartrate 50 mg tablet 50 mg PO BID hydrochlorothiazide 25 mg tablet 25 mg PO DAILY furosemide 20 mg tablet 20 mg PO DAILY PRN (Reason: weight gain of 2-3 lbs) lisinopril 40 mg tablet 40 mg PO QAM insulin glargine [Lantus Solostar U-100 Insulin] 100 unit/mL (3 mL) insulin pen 80 unit SUBCUT QAM Jardiance 10 mg tablet 10 mg PO DAILY Discharge Orders: Discharge Order (Routine); Ordered 03/19/22 Ordered By: Sarah Johnston Admission Data Admit Date/Time: 03/16/22 13:45 Attending Provider: Jon Lyon Admit Provider: Rossy Martínez Primary Care Provider: PCP,NO Other Providers: Richie Law ; [facility] ; Rossy Mart[facility]nez ; Bill Warner Other Interventions: Discharge Summary Assessment (RN) Last Done: 03/19/22 14:04 Supervising Physician Co-Signing Physician Notes I personally examined the patient and verified all craig points of history and exam, discussed case, and agree with decision making with Dr Johnston Had some leg cramps, but otherwise pain control reasonable. Cramps were better than yesterday. Vitals noted, in general she is awake and alert pleasant no distress. HEENT normocephalic atraumatic mucous membranes moist. Breathing unlabored no accessory muscle use good effort. Skin shows no rashes no pallor or icterus. Neuro without focal deficits. Hip fractureosteopenia on most recent DEXA scan, have to assume osteoporotic overall given fracture with ground-level fall, and recent shoulder fracture with a similar ground-level fall. Vitamin D adequate at 40 right nowwould want to see what it is like in the middle of winter. Probably would start bisphosphonate in about a month obviously we will be deferring to PCP in this regard. Type 2 [id number] 7.3. Extensive discussion on lifestyle on 03/17. DVT prophLovenox twice daily Leg crampscalcium/magnesium helped a good bitshe also notes potassium supplements help at home as well. otherwise as above, stable for rehab, communicated plan of care to rehab team Resident Activity Tracking Resident Involvement: Resident Care Provided Care Provided: Adult Hospital Medicine
[2022-03-19] MEDS ORDERED: LACTATED RINGER'S 500 ML IV ONE (13:30)
--- NOTE | 2022-03-19 17:04 | Billing Data ---
Date of Service March 19, 2022 Coding Level of Care Code D/C DAY MANAGEMENT <30 MINS
== END 2022-03-19 17:11 | DRG 522 ==
LOC: ED 10:22 → 3N 13:45 → SUATTDRO 13:45 → 3N 18:00
DX: E66.01 Morbid (severe) obesity due to excess calories; M80.052A Age-related osteoporosis with current pathological fracture, left femur, initial encounter for fracture; G47.33 Obstructive sleep apnea (adult) (pediatric); E78.5 Hyperlipidemia, unspecified; I10 Essential (primary) hypertension; W01.198A Fall on same level from slipping, tripping and stumbling with subsequent striking against other object, initial encounter; I69.354 Hemiplegia and hemiparesis following cerebral infarction affecting left non-dominant side; Y92.89 Other specified places as the place of occurrence of the external cause; Z68.42 Body mass index [BMI] 45.0-49.9, adult; Z79.4 Long term (current) use of insulin; E11.9 Type 2 diabetes mellitus without complications

== ENCOUNTER 2022-03-19 22:07 | Observation (INO) ==
[2022-03-19 22:36] LABS: Basophils # (auto) 0.06 K/uL (0-0.2); Basophils % (auto) 0.4 %; Eosinophils # (auto) 0.05 K/uL (0-0.50); Eosinophils % (auto) 0.3 %; Hemoglobin 10.6 g/dl (12.0-16.0); Immature Granulocytes # (auto) 0.09 K/uL (0.00-0.02); Immature Granulocytes % (auto) 0.6 %; Lymphocytes # (auto) 1.41 K/uL (1.2-3.4); Lymphocytes % (auto) 9.8 %; Mean Corpuscular Hemoglobin 23.9 pg (25.0-34.0); Mean Corpuscular Hgb Conc 31.2 g/dL (32.0-36.0); Mean Corpuscular Volume 76.7 fL (80.0-100.0); Mean Platelet Volume 11.2 fL (9.4-12.3); Monocytes # (auto) 1.63 K/uL (0.24-0.82); Monocytes % (auto) 11.3 %; Neutrophils # (auto) 11.18 K/uL (1.4-6.5); Neutrophils % (auto) 77.6 %; Platelet Count 209 K/uL (130-400); RDW Coefficient of Variation 14.5 % (11.5-14.5); RDW Standard Deviation 39.9 fL (36.4-46.3); Red Blood Count 4.43 M/uL (3.93-5.22); White Blood Count 14.42 K/ul (4.8-10.8)
[2022-03-19 22:55] LABS: Partial Thromboplastin Time 27.9 Seconds (21.0-31.0); Prothrombin Time 10.9 Seconds (9.0-12.0)
[2022-03-19 23:00] LABS: BUN Creatinine Ratio 19.8 (10-20); Calcium 8.9 mg/dl (8.5-10.1); Creatinine Clr Calc Pharmacy 68.5 ml/min; Est GFR (African American) 54.8 ml/min; Est GFR (Non-African American) 47.2 ml/min
[2022-03-19 23:04] LABS: Troponin I High Sensitivity 128.1 pg/ml (0-14)
--- NOTE | 2022-03-19 23:18 | Emergency Department Note ---
History of Present Illness General Chief complaint: Syncope Stated complaint: syncope Time Seen by Provider: 03/19/22 22:14 Source: patient and EMS History of Present Illness Provider complaint: Found unresponsive Onset (ago): day(s) 1 Associated symptoms: + nausea/vomiting and + shortness of breath; no chest pain, no cough, no fever/chills or no headaches 62-year-old female presents emergency department via EMS for being found unresponsive 45 minutes ago at her correction. The patient reports all day she has been having nausea and vomiting after starting OxyContin for her pain status post her hip repair. She reports she feels much better right now. EMS reports that the patient was hypoxic at 60% on room air. Patient reports no fevers. She does report a cough. Patient and EMS report no falls since her surgery. Home Medications Medication Instructions Recorded Confirmed Type atorvastatin 80 mg tablet 80 mg PO DAILY 03/16/22 03/16/22 History clopidogrel 75 mg tablet 75 mg PO DAILY 03/16/22 03/16/22 History empagliflozin 10 mg tablet 10 mg PO DAILY 03/16/22 03/16/22 History (Jardiance) furosemide 20 mg tablet 20 mg PO DAILY PRN weight gain of 03/16/22 03/16/22 History 2-3 lbs hydrochlorothiazide 25 mg tablet 25 mg PO DAILY 03/16/22 03/16/22 History insulin glargine 100 unit/mL (3 80 unit subcut QAM 03/16/22 03/16/22 History mL) subcutaneous pen (Lantus Solostar U-100 Insulin) lisinopril 40 mg tablet 40 mg PO QAM 03/16/22 03/16/22 History metformin 1,000 mg tablet 1,000 mg PO BID 03/16/22 03/16/22 History metoprolol tartrate 50 mg tablet 50 mg PO BID 03/16/22 03/16/22 History Allergies Allergy/AdvReac Type Severity Reaction Status Date / Time No Known Allergies Allergy Verified 03/16/22 14:49 Past Med/Surg History Medical History Diabetes mellitus type 2 in obese History of CVA (cerebrovascular accident) HTN (hypertension), benign Hyperlipidemia Obesity ARCELIA (obstructive sleep apnea) Osteopenia Surgical History History of cholecystectomy History of hip surgery History of hysterectomy History of sinus surgery History of tonsillectomy Family History Other Family history non-contributory Social History Smoking Status: Never smoker Hx Alcohol Use: No Hx Substance Use: No Preferred Language: Austrian Communication Ability: Effective Billing Assistant Required: No Beliefs That Will Affect Care: None marital status: Single Current Living Situation: Alone Feels Safe at Home: Yes Assistive Devices: Cane Review of Systems A total of 10 systems reviewed and were otherwise negative Physical Exam Vital Signs Vital Signs - 24 hr 03/19/22 22:13 03/19/22 22:13 03/19/22 22:13 Temperature 37.7 C H Temperature Source Oral Pulse Rate 106 H Pulse Rate [Apical] Respiratory Rate 22 Respiratory Effort / Characteristics Non-Labored Respiratory Depth Normal Normal Blood Pressure 110/64 Blood Pressure [Right Arm] Blood Pressure Mean 79 Blood Pressure Mean [Right Arm] Pulse Oximetry 88 L Oxygen Delivery Method Room Air Room Air Oxygen Flow Rate 0 Sepsis Recent Fever Within 48 Hours No Sepsis New/Unexplained Change in Mental Status No Sepsis Action Taken by Nursing Physician Notified Oxygen Flow Rate - Titration 3 03/19/22 22:21 03/19/22 22:38 Temperature Temperature Source Pulse Rate Pulse Rate [Apical] 101 H Respiratory Rate 17 Respiratory Effort / Characteristics Respiratory Depth Blood Pressure Blood Pressure [Right Arm] 104/62 Blood Pressure Mean Blood Pressure Mean [Right Arm] 76 Pulse Oximetry 99 97 Oxygen Delivery Method Nasal Cannula Nasal Cannula Oxygen Flow Rate 3 3 Sepsis Recent Fever Within 48 Hours Sepsis New/Unexplained Change in Mental Status Sepsis Action Taken by Nursing Oxygen Flow Rate - Titration Physical Exam GENERAL: She is oriented to person, place, and time. She appears well-developed and well-nourished. HENT: Exam performed. -Head: Normocephalic and atraumatic. -Right Ear: External ear normal. No mastoid tenderness. -Left Ear: External ear normal. No mastoid tenderness. -Mouth/Throat: The oropharynx is clear and moist. No trismus in the jaw. No dental abscesses or uvula swelling. No oropharyngeal exudate or tonsillar abscesses. EYES: Conjunctivae and EOM are normal. Pupils are equal, round, and reactive to light. Right eye exhibits no discharge. Left eye exhibits no discharge. No scle ral icterus. NECK: Normal range of motion. Neck supple. No JVD present. No spinous process tenderness present. No carotid bruit present. No rigidity. No tracheal deviation and normal range of motion present. No Brudzinski's sign and no Kernig's sign noted. CV: Normal rate, regular rhythm, normal heart sounds and intact distal pulses. There is no peripheral edema. Palpable radial pulses bue. PULM/CHEST: Rhonchi bilaterally. ABD: The abdomen is soft and obese. MUSC/SKEL: Pelvis stable NEURO: Sensation grossly intact. SKIN: Surgical incision is clean and dry with no surrounding erythema discharge or bleeding. Course Course 4: The patient was evaluated in room C1. A complete history and physical exam was performed Cardiac monitoring: An order was placed for continuous cardiac monitoring. The monitor shows a rate of 100 with sinus rhythm We attempted to try the patient on room air however she was 88%. 3 L nasal cannula was applied to the patient which improved her oxygen saturation. 0020: Vital signs stable on supplemental oxygen via nasal cannula. Labs show white blood cell count of 14.4. Troponin elevated 128.1. Patient not reporting any chest pain. CTA of the chest shows no PE but does showBronchitis with pneumonitis which may be infectious or inflammatory. Patient will be treated with antibiotics cefepime and vancomycin. CT of the head within normal limits. Patient will be admitted to the [facility] team Dr. Stubbs notified. Administered Medications Discontinued Medications Cefepime HCl (Maxipime) 2,000 mg in 20 mls @ 5 mls/min IV NOW STA; Protocol Stop: 03/19/22 23:59 Last Admin: 03/20/22 00:02 Dose: 5 mls/min Documented By: JACQUELIN Ioversol (Optiray 320 125ml) 119 ml IV ONCE ONE Stop: 03/19/22 23:43 Last Admin: 03/19/22 23:42 Dose: 1 ml Documented By: LOS Critical Care Time Critical Care Time: Yes Total Critical Care Time: 46 I have personally spent greater than 46 minutes of critical care time in the direct management of this patient. This includes bedside care, interpretation of diagnostic studies, and testing, discussion with consultants, patient, and family members, and other required patient management activities. This 46 minutes is in excess of all separately billable procedures. Medical Decision Making Laboratory Data Result diagrams: 03/19/22 22:25 03/19/22 22:25 Lab Results 03/19/22 03/19/22 03/19/22 Range/Units 22:25 22:25 22:25 WBC 14.42 H (4.8-10.8) K/ul RBC 4.43 (3.93-5.22) M/uL Hgb 10.6 L (12.0-16.0) g/dl Hct 34.0 L (34.1-44.9) % MCV 76.7 L (80.0-100.0) fL MCH 23.9 L (25.0-34.0) pg MCHC 31.2 L (32.0-36.0) g/dL RDW Std Deviation 39.9 (36.4-46.3) fL RDW Coeff of Tato 14.5 (11.5-14.5) % Plt Count 209 (130-400) K/uL MPV 11.2 (9.4-12.3) fL Immature Gran % (Auto) 0.6 % Neut % (Auto) 77.6 % Lymph % (Auto) 9.8 % Hart % (Auto) 11.3 % Eos % (Auto) 0.3 % Baso % (Auto) 0.4 % Neut # (Auto) 11.18 H (1.4-6.5) K/uL Lymph # (Auto) 1.41 (1.2-3.4) K/uL Hart # (Auto) 1.63 H (0.24-0.82) K/uL Eos # (Auto) 0.05 (0-0.50) K/uL Baso # (Auto) 0.06 (0-0.2) K/uL Immature Gran # (Auto) 0.09 H (0.00-0.02) K/uL PT 10.9 (9.0-12.0) Seconds INR 1.0 (0.9-1.1) APTT 27.9 (21.0-31.0) Seconds PTT Ratio 1.0 Sodium 133 L (136-145) mmol/L Potassium 4.0 (3.5-5.1) mmol/L Chloride 94 L (98-107) mmol/L Carbon Dioxide 33 H (21-32) mmol/L Anion Gap 6 (3-11) BUN 24 H (6-23) mg/dl Creatinine 1.21 H D (0.6-1.2) mg/dl Est Cr Clr Drug Dosing 68.5 ml/min Est GFR ( Amer) 54.8 ml/min Est GFR (Non-Af Amer) 47.2 ml/min BUN/Creatinine Ratio 19.8 (10-20) Glucose 161 H (70-99(Fasting)) mg/dl Calcium 8.9 (8.5-10.1) mg/dl Troponin I High Sens 128.1 H* (0-14) pg/ml Lipase 6 L (11-82) U/L SARS-CoV-2, RNA, NAAT (NEGATIVE) 03/19/22 Range/Units Unknown WBC (4.8-10.8) K/ul RBC (3.93-5.22) M/uL Hgb (12.0-16.0) g/dl Hct (34.1-44.9) % MCV (80.0-100.0) fL MCH (25.0-34.0) pg MCHC (32.0-36.0) g/dL RDW Std Deviation (36.4-46.3) fL RDW Coeff of Tato (11.5-14.5) % Plt Count (130-400) K/uL MPV (9.4-12.3) fL Immature Gran % (Auto) % Neut % (Auto) % Lymph % (Auto) % Hart % (Auto) % Eos % (Auto) % Baso % (Auto) % Neut # (Auto) (1.4-6.5) K/uL Lymph # (Auto) (1.2-3.4) K/uL Hart # (Auto) (0.24-0.82) K/uL Eos # (Auto) (0-0.50) K/uL Baso # (Auto) (0-0.2) K/uL Immature Gran # (Auto) (0.00-0.02) K/uL PT (9.0-12.0) Seconds INR (0.9-1.1) APTT (21.0-31.0) Seconds PTT Ratio Sodium (136-145) mmol/L Potassium (3.5-5.1) mmol/L Chloride (98-107) mmol/L Carbon Dioxide (21-32) mmol/L Anion Gap (3-11) BUN (6-23) mg/dl Creatinine (0.6-1.2) mg/dl Est Cr Clr Drug Dosing ml/min Est GFR ( Amer) ml/min Est GFR (Non-Af Amer) ml/min BUN/Creatinine Ratio (10-20) Glucose (70-99(Fasting)) mg/dl Calcium (8.5-10.1) mg/dl Troponin I High Sens (0-14) pg/ml Lipase (11-82) U/L SARS-CoV-2, RNA, NAAT NEGATIVE (NEGATIVE) Imaging Data Radiologist's Impression: PreliminaryFindingsOnly See Final Report For Complete Findings CTACHEST: No evidence of pulmonaryembolus. Bronchitiswith pneumonitis, which maybe of infectious or inflammatoryetiologies. Cardiomegalywith moderate calcified atherosclerotic disease of the coronary arteries. Hepatic steatosis. Bilateral thyroid nodules. No comparisons. Radiologist: Janie Banuelos MD Study ready at 23:44 and initial results transmitted at 23:51 PreliminaryFindingsOnly See Final Report For Complete Findings CT HEAD: No evidence of acute intracranial pathology. There is a remote ischemic injuryof the right capsule. Mild nonspecificwhite matter changes. Bilateral proptosiswith thickening of the extraocular muscles, which can be seen with thyroid ophthal mopathyin the setting of Graves' disease. No comparisons. Radiologist: Janie Banuelos MD Study ready at 23:40 and initial results transmitted at 23:48 ECG Data Indication: + SOB/dyspnea Rate (beats per minute): 105 Rhythm: + sinus tachycardia ECG Intervals/blocks: + Normal QRS, + Normal NM and + Normal QT-c ECG ST segments: + Normal ST segments [facility] Narrative 2214: The patient was evaluated in room C1. A complete history and physical exam was performed Cardiac monitoring: An order was placed for continuous cardiac monitoring. The monitor shows a rate of 100 with sinus rhythm We attempted to try the patient on room air however she was 88%. 3 L nasal cannula was applied to the patient which improved her oxygen saturation. 0020: Vital signs stable on supplemental oxygen via nasal cannula. Labs show white blood cell count of 14.4. Troponin elevated 128.1. Patient not reporting any chest pain. CTA of the chest shows no PE but does showBronchitis with pneumonitis which may be infectious or inflammatory. Patient will be treated with antibiotics cefepime and vancomycin. CT of the head within normal limits. Patient will be admitted to the [facility] team Dr. Stubbs notified. Impression & Plan Hypoxia, Pneumonia Discharge Plan Visit Data Chief Complaint: Syncope Stated Complaint: syncope ED Provider: Adalberto Davidson Discharge Problem: Hypoxia, Pneumonia Patient Disposition: Admitted As Inpatient Forms Stand Alone Forms: My [facility] Prescriptions Prescriptions: No Action atorvastatin 80 mg tablet 80 mg PO DAILY clopidogrel 75 mg tablet 75 mg PO DAILY metformin 1,000 mg tablet 1,000 mg PO BID metoprolol tartrate 50 mg tablet 50 mg PO BID hydrochlorothiazide 25 mg tablet 25 mg PO DAILY furosemide 20 mg tablet 20 mg PO DAILY PRN (Reason: weight gain of 2-3 lbs) lisinopril 40 mg tablet 40 mg PO QAM insulin glargine [Lantus Solostar U-100 Insulin] 100 unit/mL (3 mL) insulin pen 80 unit SUBCUT QAM Jardiance 10 mg tablet 10 mg PO DAILY Referrals Referrals: PCP,NO [Primary Care Provider] -
[2022-03-19] MEDS ORDERED: OPTIRAY 320 125ml IV ONE (23:42)
[2022-03-19] MEDS ORDERED: CEFEPIME 2,000 MG/20 ML VIAL IV STA (23:56)
[2022-03-19] MEDS ORDERED: VANCOMYCIN HCL 2,750 MG in SODIUM CHLORIDE 0.9% 500 ML IV ONE (23:56)
[2022-03-19] MEDS ORDERED: VANCOMYCIN CONSULT ACTIVE PRN (23:56)
--- NOTE | 2022-03-20 00:37 | History & Physical Report ---
Date of Service March 20, 2022 Assessment & Plan (1) Hypoxia: Plan: 62yo female with a history of CVA with left-sided mild hemiparesis, HTN, DM2, morbid obesity, hyperlipidemia, ARCELIA noncompliant with CPAP, and osteopenia presents after being found unresponsive and hypoxic at [facility], in the setting of recent left displace femoral neck fracture repair (admitted to [facility] from 03/16 to 03/19). Syncope, acute hypoxic respiratory failure Etiology unclear; differential includes medication side-effect, CVA, infectious process, arrhythmia, fat embolism, others Initial vitals and labs noted in HPI EKG: sinus tachycardia, no ischemic change, QTc not prolonged CXR without overt sign of infection (upon my read) CTA chest ([facility] read): no evidence of PE; signs of bronchitis +/- pneumonitis; cardiomegaly; calcified atherosclerotic disease; hepatic steatosis; bilateral thyroid nodules CT head ([facility] read): no acute intracranial pathology; remote ischemic injury of right capsule; mild nonspecific white matter changes; bilateral proptosis with EOM thickening Leukocytosis likely secondary to recent surgery vs bronchitis vs other No overt sign of infection; will discontinue vancomycin and hold further antibiotics for now, reassess in AM Continue supplemental oxygen as-needed Lovenox 40mg sq q12h NPO pending speech eval Echo ordered PT/OT ordered Fall precautions Trend CBC, BMP, mag, phos Lipid profile ordered DM2 HbA1c 7.3% (03/17/2022) Patient's home regimen held on admission Continue BSG checks, sliding-scale insulin, hypoglycemic protocol Elevated troponin On admission, hsTroponin elevated to 128, repeat value pending EKG: NSR, no overt sign of ischemic change Patient without CP at this time FREDY On admission, creatinine elevated above baseline (admission creatinine 1.21, baseline ~0.7) LR @ 125mL/hr (x1 bag ordered) Trend BMP, avoid nephrotoxins, encourage oral intake once patient is taking PO Microcytic anemia Hgb 10.6 on admission down from 11.2 earlier in the day (on 03/19) No sign of active bleeding Repeat H/H in AM Serum iron level ordered Bilateral proptosis, bilateral pulmonary nodules Incidental finding on CT head TSH ordered PCP follow-up recommended Left displaced femoral neck fracture s/p repair (03/17/22) Continue pain control HTN: BP wnl on admission, hold home metoprolol unless hypertensive/tachycardic HLD: home atorvastatin FEN: NPO pending speech eval, LR @ 125mL/hr (x1 bag ordered) Code status: DNR/DNI DVT ppx: lovenox Held home meds: DM2 regimen, furosemide, clopidogrel, HCTZ, lisinopril, metoprolol PT/OT: ordered Dispo: med/telemetry (2) Diabetes mellitus type 2 in obese: (3) HTN (hypertension), benign: (4) Hyperlipidemia: (5) History of CVA (cerebrovascular accident): (6) Hip fracture: (7) Obesity: (8) ARCELIA (obstructive sleep apnea): (9) Osteopenia: History of Present Illness Primary Care Provider: NO PCP 62yo female with a history of CVA with mild left-sided hemiparesis, HTN, HLD, DM2, morbid obesity, ARCELIA (nonadherent with CPAP), and osteopenia presents after being found unresponsive and hypoxic at [facility] in the setting of recent left displace femoral neck fracture repair (admitted to [facility] from 03/16 to 03/19). Patient reports being given two tabs of oxycodone this morning for bad leg cramps (while still at [facility]) and developed nausea and vomiting. Patient received fluids and was feeling better prior to being discharged. Patient is unsure of what happened next - she remembers arriving at [facility] but doesn't remember much afterward. Patient was apparently found by [facility] staff after [id number] 45 minutes prior. EMS called, and per ED provider note, EMS found patient to be hypoxic to 60% on room air and was then brought to [facility]. S molly arrival, patient is feeling better, and thinks today's events were a side- effect of oxycodone, though she has reportedly tolerated oxycodone in the past without similar symptoms. Patient does note poor PO intake over the past few days. Patient denies fever, chills, headache, vision changes, CP, palpitations, edema, dysuria, hematochezia, melena, or other symptoms. Denies recent illness and recent travel. Upon arrival, vitals were notable for tachycardia (mid-100s), and hypoxia (88) which improved with 3L NC. BP well-controlled, no tachypnea, afebrile. Initial labs were notable for leukocytosis (14.4), microcytic anemia (Hgb 10.6, MCV 76.7), mild hyponatremia (133), elevated creatinine (1.21, baseline ~0.7), and elevated hsTroponin (128.1). Repeat hsTroponin pending. In the ED, patient was given a dose of cefepime and started on vancomycin. Surrogate decision-maker in case of an emergency: friend Enriqueta Garcia ([phone]) Allergies Allergy/AdvReac Type Severity Reaction Status Date / Time No Known Allergies Allergy Verified 03/20/22 00:54 Home Medications Medication Instructions Recorded Confirmed Type atorvastatin 80 mg tablet 80 mg PO DAILY 03/16/22 03/20/22 History clopidogrel 75 mg tablet 75 mg PO DAILY 03/16/22 03/20/22 History empagliflozin 10 mg tablet 10 mg PO DAILY 03/16/22 03/20/22 History (Jardiance) furosemide 20 mg tablet 20 mg PO DAILY PRN weight gain of 03/16/22 03/20/22 History 2-3 lbs hydrochlorothiazide 25 mg tablet 25 mg PO DAILY 03/16/22 03/20/22 History insulin glargine 100 unit/mL (3 50 unit subcut QAM 03/16/22 03/20/22 History mL) subcutaneous pen (Lantus Solostar U-100 Insulin) lisinopril 40 mg tablet 40 mg PO QAM 03/16/22 03/20/22 History metformin 1,000 mg tablet 1,000 mg PO BIDM 03/16/22 03/20/22 History metoprolol tartrate 50 mg tablet 50 mg PO Q12 03/16/22 03/20/22 History acetaminophen 325 mg tablet 650 mg PO QID PRN Pain 03/20/22 03/20/22 History (Tylenol) docusate sodium 100 mg capsule 100 mg PO BID 03/20/22 03/20/22 History enoxaparin 40 mg/0.4 mL 40 mg subcut Q12H 03/20/22 03/20/22 History subcutaneous syringe insulin regular human 100 unit/mL 1 sliding scale dose subcut 03/20/22 03/20/22 History injection solution (Humulin R USEASDIRECTD Regular U-100 Insulin) magnesium hydroxide 400 mg/5 mL 30 ml PO DAILY PRN Constipation 03/20/22 03/20/22 History oral suspension (Milk of Magnesia) Past Med/Surg History Medical History Diabetes mellitus type 2 in obese History of CVA (cerebrovascular accident) HTN (hypertension), benign Hyperlipidemia Obesity ARCELIA (obstructive sleep apnea) Osteopenia Surgical History History of cholecystectomy History of hip surgery History of hysterectomy History of sinus surgery History of tonsillectomy Family History Other Family history non-contributory Social History Smoking Status: Never smoker Second Hand Exposure: No; Do You Dip or Chew Tobacco: No; Tobacco Cessation Education Requested by Patient: No Hx Alcohol Use: No Hx Substance Use: No Preferred Language: Frisian Communication Ability: Effective Biomedical Engineering Professor Required: No Beliefs That Will Affect Care: None marital status: Single Current Living Situation: Alone How many Children do You have: 0 Other Information That Helps Us Care for You: No Feels Safe at Home: Yes Safety Concerns: Feels Safe At This Time Assistive Devices: None Physical Exam Physical Exam: Constitutional: tired-appearing, no acute distress HEENT: NCAT, no conjunctival injection CV: regular rhythm, no murmur appreciated, extremities well-perfused, no LE edema Resp: CTABL, no wheezes/rales/rhonchi appreciated, no increased work of breathing GI: soft, nondistended, nontender, BS normoactive Neuro: alert, oriented, CN2-12 grossly intact, no focal neurologic deficit appreciated Results & Data Results & Data ([facility]) Vital Signs (Past 12 Hours) Vital Signs Temp Pulse Pulse Resp BP BP Pulse Ox 03/20/22 00:11 98 H 17 126/65 98 03/19/22 22:38 101 H 17 104/62 97 03/19/22 22:21 99 03/19/22 22:13 03/19/22 22:13 37.7 C H 106 H 22 110/64 88 L O2 Del Method O2 Flow Rate 03/20/22 00:11 03/19/22 22:38 Nasal Cannula 3 08/04/22 22:21 Nasal Cannula 3 03/19/22 22:13 Room Air 0 03/19/22 22:13 Room Air Supervising Physician Co-Signing Physician Notes Attending addendum: I have physically seen this patient, have supervised the medical residents activities, and agree with the H&P unless as otherwise noted. Assessment and Plan: Acute respiratory failure with hypoxia/bronchitis/pneumonitis- Pulse ox 85% on room air upon arrival Given cefepime IV and vancomycin IV from the ED Place on cefepime 2 g IV daily and azithromycin 500mg IV daily Duonebs every 4 hours while awake and every 2 hours when necessary. Follow sputum gram stain and culture NPO Consult speech for evaluation for possible aspiration Elevated troponin/hypertension/history of CVA- The patient will be admitted to telemetry for serial cardiac enzymes, serial EKG's, cardiac rhythm monitoring and a 2-D echocardiogram with Dopplers. Likely type II supply demand mismatch Acute kidney injury- Creatinine 1.21 upon mission, with range 0.67 to 0.97 Repeat laboratories in a.m. Diabetes mellitus- Placed on Accu-Cheks before meals and at bedtime with NovoLog coverage per scale Remaining orders and notations as noted Resident Activity Tracking Resident Involvement: Resident Care Provided and Flame Cutter Coverage Note Care Provided: Adult Hospital Medicine
[2022-03-20] MEDS ORDERED: MELATONIN 3 MG TAB PO PRN (04:35)
[2022-03-20] MEDS ORDERED: MAGNESIUM HYDROXIDE SUSP 30 ML UDC PO PRN (04:35)
[2022-03-20] MEDS ORDERED: GLUCAGON FOR INJ 1 MG VIAL SQ PRN (04:35)
[2022-03-20] MEDS ORDERED: CARBOHYDRATES FOR HYPOGLYCEMIA PO PRN (04:35)
[2022-03-20] MEDS ORDERED: LACTATED RINGER'S 1,000 ML IV SCH (04:35)
[2022-03-20] MEDS ORDERED: ONDANSETRON INJ 2 MG/ML 2 ML VIAL IV PRN (04:35)
[2022-03-20] MEDS ORDERED: DEXTROSE 50% 50 ML SYRINGE IV PRN (04:35)
[2022-03-20] MEDS ORDERED: GLUCOSE 10 TAB/TUBE PO PRN (04:35)
[2022-03-20] MEDS ORDERED: ACETAMINOPHEN 325 MG TAB PO PRN (04:35)
[2022-03-20] MEDS ORDERED: GLUCOSE 40% GEL 15 GM TUBE PO PRN (04:35)
[2022-03-20] MEDS ORDERED: INSULIN ASPART PER UNIT SC SCH (06:00)
[2022-03-20] MEDS ORDERED: ENOXAPARIN INJ 40 MG/0.4 ML SYR SQ SCH (06:00)
--- NOTE | 2022-03-20 07:07 | XRay Report ---
XR chest 1V portable CLINICAL HISTORY: Atypical chest pain. COMPARISON STUDY: Chest radiograph March 16, 2022. FINDINGS: Lung volumes are normal. No consolidation to suggest pneumonia. Linear bibasilar opacities suggestive of atelectasis. There is no pneumothorax or pleural effusion. Moderate cardiomegaly is unc hanged. Mediastinal contours are normal. There is no evidence for pulmonary edema. IMPRESSION: No acute cardiopulmonary findings. Cardiomegaly. ACT 112: Negative or not required by law. Electronically signed by: Jared Clements M.D. 03/20/2022 7:06 AM
--- NOTE | 2022-03-20 07:15 | CT Scan Report ---
CT OF THE HEAD WITHOUT CONTRAST CLINICAL HISTORY: Altered mental status. COMPARISON STUDY: No previous studies for comparison. CT DOSE: 1478.03 mGy.cm TECHNIQUE: Helical axial images of the head were obtained without IV contrast. Automated exposure con trol was utilized for the study. A dose lowering technique was utilized adhering to the principles o f ALARA. FINDINGS: No acute intracranial hemorrhage, midline shift or mass effect is present. A 1.6 cm hypoden se focus within the right external capsule represents an old infarct. The ventricular system is unrem arkable. The basal cisterns are patent. No extra-axial collections are present. There are no findings to suggest acute dural sinus thrombosis or acute territorial infarct. No significant calvarial abnor malities are present. Mild secretions within the sphenoid sinuses are present. IMPRESSION: 1. No acute intracranial findings. 2. 1.6 cm old infarct within the right external capsule. ACT 112: Negative or not required by law. Electronically signed by: Jared Clements M.D. 03/20/2022 7:13 AM
[2022-03-20 07:22] LABS: Basophils # (auto) 0.06 K/uL (0-0.2); Basophils % (auto) 0.5 %; Eosinophils # (auto) 0.17 K/uL (0-0.50); Eosinophils % (auto) 1.4 %; Hematocrit (blood only) 33.3 % (34.1-44.9); Hemoglobin 10.6 g/dl (12.0-16.0); Immature Granulocytes # (auto) 0.09 K/uL (0.00-0.02); Immature Granulocytes % (auto) 0.7 %; Lymphocytes # (auto) 1.74 K/uL (1.2-3.4); Lymphocytes % (auto) 13.9 %; Mean Corpuscular Hemoglobin 23.9 pg (25.0-34.0); Mean Corpuscular Hgb Conc 31.8 g/dL (32.0-36.0); Mean Corpuscular Volume 75.2 fL (80.0-100.0); Mean Platelet Volume 11.6 fL (9.4-12.3); Monocytes # (auto) 1.51 K/uL (0.24-0.82); Monocytes % (auto) 12.1 %; Neutrophils # (auto) 8.95 K/uL (1.4-6.5); Neutrophils % (auto) 71.4 %; Platelet Count 211 K/uL (130-400); RDW Coefficient of Variation 14.6 % (11.5-14.5); RDW Standard Deviation 39.6 fL (36.4-46.3); Red Blood Count 4.43 M/uL (3.93-5.22); White Blood Count 12.52 K/ul (4.8-10.8)
[2022-03-20 07:37] LABS: Albumin Globulin Ratio 1.2 (0.9-2); Albumin Level 3.3 gm/dl (3.4-5.0); BUN Creatinine Ratio 25.3 (10-20); Bilirubin,Total 0.6 mg/dl (0.2-1.0); Calcium 8.7 mg/dl (8.5-10.1); Chol HDL Ratio 2.8 (0-5); Creatinine Clr Calc Pharmacy 93.7 ml/min; Est GFR (African American) 81.6 ml/min; Est GFR (Non-African American) 70.4 ml/min; Globulin 2.7 gm/dl (2.5-4.0); Magnesium 2.2 mg/dl (1.7-2.4); Phosphorus 2.7 mg/dl (2.5-4.9); Potassium 3.6 mmol/L (3.5-5.1)
--- NOTE | 2022-03-20 07:40 | CT Scan Report ---
CT ANGIOGRAM OF THE CHEST CLINICAL HISTORY: Atypical chest pain. COMPARISON STUDY: Chest x-ray dated 03/19/2022. TECHNIQUE: Following the IV administration of 119 cc of Optiray 320, CT angiogram of the chest was pe rformed from the upper abdomen to the thoracic inlet utilizing the pulmonary embolus protocol. Images are reviewed in the axial, sagittal, and coronal planes. 3-D MIPS images are created and assessed. I V contrast was administered without complication. A dose lowering technique was utilized adhering to the principles of ALARA. The examination is degraded by motion artifact, as well as by streak artifa ct from the left arm which could not be elevated above the chest. FINDINGS: Thyroid: Imaged portions of the thyroid gland are enlarged and heterogeneous. Thoracic aorta: There is mild atherosclerotic calcification of the thoracic aorta, which is normal in caliber and demonstrates standard 3-vessel arch anatomy. No dissection is seen. Pulmonary vasculature: The pulmonary trunk is normal in caliber. There or segmental pulmonary emboli within branches of the right upper lobe pulmonary artery. These are best seen on images #142 and #164 . The remaining pulmonary vessels appear clear. Heart: The heart is enlarged and without pericardial effusion. There are coronary artery calcificatio ns. Lungs and pleural spaces: Evaluation of the lung parenchyma is degraded by motion artifact. No airspa ce consolidation or pleural effusion is identified. Foci of air trapping are seen throughout both teresa gs and there is dependent atelectasis. The trachea and central airways are clear. Mediastinum: There is no mediastinal lymphadenopathy. Lety: Clear. Axillae: There is no axillary lymphadenopathy. Upper abdomen: The liver appears steatotic. A small hiatal hernia is noted. Skeletal structures: The skeletal structures are osteopenic. No lytic or blastic bony lesions are see n. Chronic deformity is noted in the left proximal humerus. IMPRESSION: 1. There are segmental pulmonary emboli within branches of the right upper lobe pulmonary artery. 2. Cardiomegaly. 3. There is no airspace consolidation or pleural effusion. 4. Hepatic steatosis. 5. Additional findings as above.. ACT 112: Negative or not required by law. Electronically signed by: Juancho Maxwell M.D. 03/20/2022 7:39 AM
[2022-03-20] MEDS ORDERED: MICONAZOLE NITRATE POWDER 43 GM EXT PRN (07:41)
[2022-03-20] MEDS ORDERED: Heparin IV Adult Wt-Based Standard *NO* Bolus Protocol IV SCH (07:56)
[2022-03-20] MEDS ORDERED: HEPARIN 25000 UNIT/500 ML D5W IV ONE (08:40)
[2022-03-20 09:15] LABS: Partial Thromboplastin Time 28.8 Seconds (21.0-31.0); Prothrombin Time 10.8 Seconds (9.0-12.0)
[2022-03-20] MEDS: HEPARIN SODIUM/DEXTROSE 25,000 UNITS/500 ML BAG IV SCH (09:51)
[2022-03-20] MEDS: ATORVASTATIN 40 MG TAB PO SCH (09:54)
[2022-03-20] MEDS: DOCUSATE SODIUM 100 MG CAP PO SCH ×2 (09:54→20:05)
--- NOTE | 2022-03-20 11:23 | Hospitalist Progress Note ---
Date of Service March 20, 2022 Assessment & Plan (1) Hypoxia: Plan: 62yo female with a history of CVA with left-sided mild hemiparesis, HTN, DM2, morbid obesity, hyperlipidemia, ARCELIA noncompliant with CPAP, and osteopenia presents after being found unresponsive and hypoxic at [facility], in the setting of recent left displace femoral neck fracture repair (admitted to [facility] from 03/16 to 03/19). Acute hypoxic respiratory failure CXR without overt sign of infection CTA chest- +segmental pulmonary emboli noted in R upper lobe pulmonary artery, signs of bronchitis +/- pneumonitis; cardiomegaly; calcified atherosclerotic disease; hepatic steatosis; bilateral thyroid nodules Cefepime/vancomycin given in ED, discontinued on admission due to low concern for infection Suspect hypoxia was due to PE, provoked by recent hip fracture s/p repair in immobile morbidly obese patient Continue supplemental O2 as needed, currently saturating well on RA Heparin infusion for now, will transition to Eliquis tomorrow- planned 10 mg daily for 7x days, then 5 mg daily to complete 3 months of therapy Echocardiogram pending Anticipate d/c back to rehab tomorrow pending stability Elevated troponin On admission, hsTroponin elevated to 128, repeat value at 893 EKG: NSR, no overt sign of ischemic change Patient without ACS symptoms at this time Likely due to demand ischemia secondary to pulmonary embolism, continue trending Heparin infusion as above for PE Echocardiogram pending DM2 HbA1c 7.3% (03/17/2022) Patient's home regimen held on admission Continue BSG checks, sliding-scale insulin, hypoglycemic protocol FREDY On admission, creatinine elevated above baseline (admission creatinine 1.21, baseline ~0.7) LR @ 125mL/hr (x1 bag ordered) Trend BMP, avoid nephrotoxins, encourage oral intake once patient is taking PO Microcytic anemia Hgb 10.6 on admission, stable at 10.6 on repeat No sign of active bleeding Iron level 10, consider iron supplementation at PCP f/u Bilateral proptosis, bilateral pulmonary nodules CT head- no acute intracranial pathology; remote ischemic injury of right capsule; mild nonspecific white matter changes; bilateral proptosis with EOM thickening TSH ordered PCP follow-up recommended Left displaced femoral neck fracture s/p repair (03/17/22) Continue pain control HTN: BP wnl on admission, hold home metoprolol unless hypertensive/tachycardic HLD: home atorvastatin FEN: NPO pending speech eval, LR @ 125mL/hr (x1 bag ordered) Code status: DNR/DNI DVT ppx: Heparin infusion Held home meds: DM2 regimen, furosemide, clopidogrel, HCTZ, lisinopril, metoprolol Dispo: med/telemetry (2) Diabetes mellitus type 2 in obese: (3) HTN (hypertension), benign: (4) Hyperlipidemia: (5) History of CVA (cerebrovascular accident): (6) Hip fracture: (7) Obesity: (8) ARCELIA (obstructive sleep apnea): (9) Osteopenia: Admission and Anticipated Discharge Date Admission Date: March 20, 2022 Supervising Physician Co-Signing Physician Notes I personally examined the patient and verified all craig points of history and exam, discussed case, and agree with decision making with Dr Johnston. Feeling better. Nervous about the diagnosis. I spent an extensive period of time explaining the diagnosis, management, as well as "myth and Urban Legend" surrounding VTE to patient and her friend. Afterwards she feels better about the situation. Notes overall she just is restless and uncomfortable. Vitals noted, in general she is awake and alert pleasant no distress. HEENT normocephalic atraumatic mucous membranes moist. Breathing unlabored no accessory muscle use good effort. Skin shows no rashes no pallor or icterus. Neuro without focal deficits. PEextensive time explaining diagnosis and management as above noted. Heparin drip for nowmostly just because she is only a few days postop to ensure she does not develop any sort of hip hematoma or bleedalthough this is not likely, and also PE treatment is really largely far superior with anticoagulation compared to a filterso it is far more important to have her on the anticoagulation unless she proves not to be able to tolerate it. As long as her hemoglobin is stable and she does not show signs or symptoms of hip hematoma tomorrowprobably back to rehab on Eliquis. Discussed with rehab facility PA who is also good with this plan. Subjective Pt readmitted shortly after discharge to rehab due to hypoxia. Overnight, pt received O2 by NC, was weaned to RA by time of my evaluation in morning. She feels well, denies any chest pain, dyspnea or other acute complaints. She is understandably upset and anxious about her health but does note feeling better compared to admission. Denies further nausea/vomiting. Review of Systems Review of Systems: Per subjective Physical Exam Physical Exam: Constitutional: tired-appearing, no acute distress but anxious HEENT: NCAT, no conjunctival injection CV: regular rhythm, no murmur appreciated, extremities well-perfused, chronic peripheral edema b/l Resp: CTAB, no wheezes/rales/rhonchi appreciated, no increased work of breathing GI: soft, nondistended, nontender, BS normoactive Neuro: alert, oriented, CN2-12 grossly intact, no focal neurologic deficit appreciated Results & Data Results & Data ([facility]) Vital Signs (Past 12 Hours) Vital Signs Temp Pulse Pulse Resp BP Pulse Ox O2 Del Method 03/20/22 07:40 36.8 C 85 22 130/74 98 Room Air 03/20/22 04:20 Nasal Cannula 03/20/22 04:20 37.2 C 97 H 20 108/71 98 Nasal Cannula 03/20/22 04:00 90 22 106/54 L 99 03/20/22 02:00 95 H 14 114/64 97 Nasal Cannula 03/20/22 00:11 98 H 17 126/65 98 O2 Flow Rate 03/20/22 07:40 03/20/22 04:20 2 03/20/22 04:20 2 03/20/22 04:00 03/20/22 02:00 3 03/20/22 00:11 Resident Activity Tracking Resident Involvement: Resident Care Provided Care Provided: Adult Hospital Medicine
[2022-03-20] MEDS ORDERED: Nursing to Pharmacy Communication SCH (11:45)
[2022-03-20] MEDS ORDERED: ONDANSETRON INJ 2 MG/ML 2 ML VIAL IV STA (13:05)
[2022-03-20] MEDS ORDERED: FAMOTIDINE 20 MG in SYRINGE 3 ML IV ONE (13:05)
[2022-03-20] MEDS ORDERED: MAGNESIUM SULFATE / D5W 1 GM/100 ML BAG IV ONE (13:06)
[2022-03-20] MEDS: POLYETHYLENE (MIRALAX) 17 GM PACK PO SCH (13:41)
--- NOTE | 2022-03-20 13:54 | XCELERA ---
[id number]
--- NOTE | 2022-03-20 15:16 | Electrocardiogram Report ---
Test Reason : Blood Pressure : / mmHG Vent. Rate : 105 BPM Atrial Rate : 105 BPM P-R Int : 128 ms QRS Dur : 086 ms QT Int : 336 ms P-R-T Axes : 017 019 060 degrees QTc Int : 444 ms Poor data quality, interpretation may be adversely affected Sinus tachycardia Nonspecific T wave abnormality Abnormal ECG When compared with ECG of 16-MAR-2022 15:30, Nonspecific T wave abnormality now evident in Inferior leads Confirmed by Dino Magaña ([id number]) on 03/20/2022 3:15:42 PM Referred By: REFERRED SELF Confirmed By:Rey Magaña
[2022-03-20] MEDS: CALCIUM CARBONATE 500 MG CHEWABLE TAB PO SCH ×2 (15:20→20:05)
--- NOTE | 2022-03-20 15:21 | Electrocardiogram Report ---
Test Reason : Blood Pressure : / mmHG Vent. Rate : 083 BPM Atrial Rate : 083 BPM P-R Int : 136 ms QRS Dur : 094 ms QT Int : 368 ms P-R-T Axes : 027 015 039 degrees QTc Int : 432 ms Poor data quality, interpretation may be adversely affected Normal sinus rhythm Minimal voltage criteria for LVH, may be normal variant Nonspecific T wave abnormality Abnormal ECG When compared with ECG of 19-MAR-2022 22:17, (unconfirmed) Nonspecific T wave abnormality, improved in Inferior leads Confirmed by Dino Magaña ([id number]) on 03/20/2022 3:20:58 PM Referred By: REFERRED SELF Confirmed By:Rey Magaña
[2022-03-20 16:11] LABS: Partial Thromboplastin Ratio 1.8
[2022-03-20 16:14] LABS: Partial Thromboplastin Time 48.7 Seconds (21.0-31.0)
[2022-03-20] MEDS: INSULIN ASPART PER UNIT SC SCH ×2 (18:08→20:52)
[2022-03-20] MEDS: FAMOTIDINE 20 MG in SYRINGE 3 ML IV SCH (20:04)
[2022-03-20] MEDS: PANTOprazole 40 MG TAB PO SCH (20:05)
[2022-03-20] MEDS ORDERED: POTASSIUM CHLORIDE CRTAB 20 MEQ TABCR PO SCH (21:00)
--- NOTE | 2022-03-20 21:30 | Billing Data ---
Date of Service March 20, 2022 Coding Level of Care Code 46363 Initial Inpt Care Lvl 3
[2022-03-21] MEDS: HEPARIN SODIUM/DEXTROSE 25,000 UNITS/500 ML BAG IV SCH (01:27)
[2022-03-21 06:00] LABS: Hemoglobin 10.6 g/dl (12.0-16.0); Mean Corpuscular Hemoglobin 23.8 pg (25.0-34.0); Mean Corpuscular Hgb Conc 31.2 g/dL (32.0-36.0); Mean Corpuscular Volume 76.4 fL (80.0-100.0); Mean Platelet Volume 10.9 fL (9.4-12.3); Platelet Count 249 K/uL (130-400); RDW Coefficient of Variation 14.4 % (11.5-14.5); RDW Standard Deviation 39.4 fL (36.4-46.3); Red Blood Count 4.45 M/uL (3.93-5.22)
[2022-03-21 06:29] LABS: BUN Creatinine Ratio 23.9 (10-20); Calcium 8.5 mg/dl (8.5-10.1); Creatinine Clr Calc Pharmacy 114.9 ml/min; Est GFR (African American) 104.3 ml/min; Potassium 3.8 mmol/L (3.5-5.1)
[2022-03-21] MEDS ORDERED: APIXABAN 5 MG TABLET PO SCH (09:00)
--- NOTE | 2022-03-21 09:29 | Discharge Summary ---
Date of Service March 21, 2022 Admission HPI Per Admitting Provider 62yo female with a history of CVA with mild left-sided hemiparesis, HTN, HLD, DM2, morbid obesity, ARCELIA (nonadherent with CPAP), and osteopenia presents after being found unresponsive and hypoxic at [facility] in the setting of recent left displace femoral neck fracture repair (admitted to [facility] from 03/16 to 03/19). Patient reports being given two tabs of oxycodone this morning for bad leg cramps (while still at [facility]) and developed nausea and vomiting. Patient received fluids and was feeling better prior to being discharged. Patient is unsure of what happened next - she remembers arriving at [facility] but doesn't remember much afterward. Patient was apparently found by [facility] staff after [id number] 45 minutes prior. EMS called, and per ED provider note, EMS found patient to be hypoxic to 60% on room air and was then brought to [facility]. Since arrival, patient is feeling better, and thinks today's events were a side- effect of oxycodone, though she has reportedly tolerated oxycodone in the past without similar symptoms. Patient does note poor PO intake over the past few days. Patient denies fever, chills, headache, vision changes, CP, palpitations, edema, dysuria, hematochezia, melena, or other symptoms. Denies recent illness and recent travel. Upon arrival, vitals were notable for tachycardia (mid-100s), and hypoxia (88) which improved with 3L NC. BP well-controlled, no tachypnea, afebrile. Initial labs were notable for leukocytosis (14.4), microcytic anemia (Hgb 10.6, MCV 76.7), mild hyponatremia (133), elevated creatinine (1.21, baseline ~0.7), and elevated hsTroponin (128.1). Repeat hsTroponin pending. In the ED, patient was given a dose of cefepime and started on vancomycin. Surrogate decision-maker in case of an emergency: friend Enriqueta Garcia ([phone]) Admission Exam Per Admitting Provider Constitutional: tired-appearing, no acute distress HEENT: NCAT, no conjunctival injection CV: regular rhythm, no murmur appreciated, extremities well-perfused, no LE edema Resp: CTABL, no wheezes/rales/rhonchi appreciated, no increased work of breathing GI: soft, nondistended, nontender, BS normoactive Neuro: alert, oriented, CN2-12 grossly intact, no focal neurologic deficit appreciated Principal Diagnosis Pulmonary embolism Discharge Exam Constitutional: tired-appearing, no acute distress but anxious HEENT: NCAT, no conjunctival injection CV: regular rhythm, no murmur appreciated, extremities well-perfused, chronic peripheral edema b/l Resp: CTAB, no wheezes/rales/rhonchi appreciated, no increased work of breathing GI: soft, nondistended, nontender, BS normoactive Neuro: alert, oriented, CN2-12 grossly intact, no focal neurologic deficit appreciated Skin: no ecchymoses or hematoma appreciated Discharge Data Allergies Allergy/AdvReac Type Severity Reaction Status Date / Time No Known Allergies Allergy Verified 03/20/22 00:54 Consultations 03/20/22 00:14 ED Decision to Admit Stat Ordered Studies 03/19/22 22:14 CT angio chest PE protocol Urgent CT head/brain wo con Urgent Hospital Course (1) Hypoxia: 62yo female with a history of CVA with left-sided mild hemiparesis, HTN, DM2, morbid obesity, hyperlipidemia, ARCELIA noncompliant with CPAP, and osteopenia presents after being found unresponsive and hypoxic at [facility], in the setting of recent left displace femoral neck fracture repair (admitted to [facility] from 03/16 to 03/19). Acute hypoxic respiratory failure CXR without overt sign of infection CTA chest- +segmental pulmonary emboli noted in R upper lobe pulmonary artery, signs of bronchitis +/- pneumonitis; cardiomegaly; calcified atherosclerotic disease; hepatic steatosis; bilateral thyroid nodules Cefepime/vancomycin given in ED, discontinued on admission due to low concern for infection Suspect hypoxia was due to PE, provoked by recent hip fracture s/p repair in immobile morbidly obese patient Echocardiogram- reassuring, EF 60-65% Received supplemental O2 as needed, currently saturating well on RA at time of discharge Heparin started on admission, transitioned to Eliquis on day of discharge, one dose given in AM prior to discharge- planned 10 mg daily for 7x days, then 5 mg daily to complete at minimum 3 months of therapy Discontinue home Lovenox 40 mg BID now that pt will be on Eliquis D/c back to [facility] rehab today Elevated troponin On admission, hsTroponin elevated to 128, repeat value at 893 EKG: NSR, no overt sign of ischemic change Patient without ACS symptoms at this time Likely due to demand ischemia secondary to pulmonary embolism DM2 HbA1c 7.3% (03/17/2022) Patient's home regimen held on admission Continue BSG checks, sliding-scale insulin, hypoglycemic protocol FREDY On admission, creatinine elevated above baseline (admission creatinine 1.21, baseline ~0.7) LR @ 125mL/hr (x1 bag ordered) Cr 0.71 at time of discharge Microcytic anemia Hgb 10.6 on admission, stable at 10.6 on repeat No sign of active bleeding Iron level 10, consider iron supplementation at PCP f/u Bilateral proptosis, bilateral pulmonary nodules CT head- no acute intracranial pathology; remote ischemic injury of right capsule; mild nonspecific white matter changes; bilateral proptosis with EOM thickening TSH wnl PCP follow-up recommended Left displaced femoral neck fracture s/p repair (03/17/22) Continue pain control HTN: BP wnl on admission, hold home metoprolol unless hypertensive/tachycardic HLD: home atorvastatin (2) Diabetes mellitus type 2 in obese: (3) HTN (hypertension), benign: (4) Hyperlipidemia: (5) History of CVA (cerebrovascular accident): (6) Hip fracture: (7) Obesity: (8) ARCELIA (obstructive sleep apnea): (9) Osteopenia: Total Time Total Time Spent Total Time Spent (In Minutes): <30 Discharge Plan Discharge Items Patient Disposition: Transfer Inpatient Rehab Fac Reason For Visit: HYPOXIA, SYNCOPE, RECENT HIP REPLACEMENT Discharge Diagnosis: Pulmonary embolism Activity: Resume your previous activity Non-emergency contact: Primary Care Provider Call non-emergency contact if: you have any medication questions, your symptoms worsen and your pain is worsening Follow-up/Referrals: PCP,NO [Primary Care Provider] - Diet: Carb Consistent or DM2 Addtl Attending Provider Instructions: 62yo female with a history of CVA with left-sided mild hemiparesis, HTN, DM2, morbid obesity, hyperlipidemia, ARCELIA noncompliant with CPAP, and osteopenia presents after being found unresponsive and hypoxic at [facility], in the setting of recent left displace femoral neck fracture repair (admitted to [facility] from 03/16 to 03/19). Acute hypoxic respiratory failure due to pulmonary embolism CXR without overt sign of infection CTA chest- +segmental pulmonary emboli noted in R upper lobe pulmonary artery, signs of bronchitis +/- pneumonitis; cardiomegaly; calcified atherosclerotic disease; hepatic steatosis; bilateral thyroid nodules Cefepime/vancomycin given in ED, discontinued on admission due to low concern for infection Suspect hypoxia was due to PE, provoked by recent hip fracture s/p repair in immobile morbidly obese patient Echocardiogram- reassuring, EF 60-65% Received supplemental O2 as needed, currently saturating well on RA at time of discharge Heparin started on admission, transitioned to Eliquis on day of discharge, one dose given in AM prior to discharge- planned 10 mg daily for 7x days, then 5 mg daily to complete at minimum 3 months of therapy Discontinue home Lovenox 40 mg BID now that pt is on Eliquis D/c back to [facility] rehab today Elevated troponin On admission, hsTroponin elevated to 128, repeat value at 893 EKG: NSR, no overt sign of ischemic change Patient without ACS symptoms at this time Likely due to demand ischemia secondary to pulmonary embolism DM2 HbA1c 7.3% (03/17/2022) Patient's home regimen held on admission Continue BSG checks, sliding-scale insulin, hypoglycemic protocol FREDY On admission, creatinine elevated above baseline (admission creatinine 1.21, baseline ~0.7) LR @ 125mL/hr (x1 bag ordered) Cr 0.71 at time of discharge Microcytic anemia Hgb 10.6 on admission, stable at 10.6 on repeat No sign of active bleeding Iron level 10, consider iron supplementation at PCP f/u Bilateral proptosis, bilateral pulmonary nodules CT head- no acute intracranial pathology; remote ischemic injury of right capsule; mild nonspecific white matter changes; bilateral proptosis with EOM thickening TSH wnl PCP follow-up recommended Left displaced femoral neck fracture s/p repair(03/17/22) Continue pain control HTN: BP wnl on admission, hold home metoprolol unless hypertensive/tachycardic HLD: home atorvastatin Pending Studies at Discharge: No Stand-Alone Forms: My [facility] Skilled Items Patient informed of condition?: Yes DNR: Yes Discharge Level of Care: Acute rehab Communicable Disease: No Discharge Prognosis: Stable Lines: None Urinary Catheter: No Medications and DC Order Prescriptions: New Eliquis 5 mg Tablet 10 mg PO BID Qty: 30 0RF Continued atorvastatin 80 mg tablet 80 mg PO DAILY clopidogrel 75 mg tablet 75 mg PO DAILY metformin 1,000 mg tablet 1,000 mg PO BIDM metoprolol tartrate 50 mg tablet 50 mg PO Q12 hydrochlorothiazide 25 mg tablet 25 mg PO DAILY furosemide 20 mg tablet 20 mg PO DAILY PRN (Reason: weight gain of 2-3 lbs) lisinopril 40 mg tablet 40 mg PO QAM insulin glargine [Lantus Solostar U-100 Insulin] 100 unit/mL (3 mL) insulin pen 50 unit SUBCUT QAM Jardiance 10 mg tablet 10 mg PO DAILY acetaminophen [Tylenol] 325 mg Tablet 650 mg PO QID PRN (Reason: Pain) magnesium hydroxide [Milk of Magnesia] 400 mg/5 mL Suspension 30 ml PO DAILY PRN (Reason: Constipation) Humulin R Regular U-100 Insuln 100 unit/mL Solution 1 sliding scale dose SUBCUT USEASDIRECTD Rx Instructions: achs as directed docusate sodium 100 mg Capsule 100 mg PO BID Discontinued enoxaparin 40 mg/0.4 mL Syringe 40 mg SUBCUT Q12H Discharge Orders: Discharge Order (Routine); Ordered 03/21/22 Ordered By: Sarah Johnston Admission Data Admit Date/Time: 03/20/22 01:30 Attending Provider: Jon Lyon Admit Provider: Yazan Leon Primary Care Provider: PCP,NO Other Providers: Jason Tan ; [facility] Other Interventions: Discharge Summary Assessment (RN) Last Done: 03/21/22 12:13 Supervising Physician Co-Signing Physician Notes I personally examined the patient and verified all craig points of history and exam, discussed case, and agree with decision making with Dr Johnston. feels better no increase in hip pain or bruising. on room air breathing OK Vitals noted, in general she is awake and alert pleasant no distress. HEENT normocephalic atraumatic mucous membranes moist. Breathing unlabored no accessory muscle use good effort. Skin shows no rashes no pallor or icterus no significant bruising around incision/dressing. Neuro without focal deficits. PEstable for return to rehab on eliquis (PESI low, still stable from PE, no bleeding after 24hrs heparin gtt as far as post op bleed risk) otherwise as above Resident Activity Tracking Resident Involvement: Resident Care Provided Care Provided: Adult Hospital Medicine
[2022-03-21] MEDS: CALCIUM CARBONATE 500 MG CHEWABLE TAB PO SCH (09:39)
[2022-03-21] MEDS: ATORVASTATIN 40 MG TAB PO SCH (09:40)
[2022-03-21] MEDS: DOCUSATE SODIUM 100 MG CAP PO SCH (09:40)
[2022-03-21] MEDS: PANTOprazole 40 MG TAB PO SCH (09:41)
[2022-03-21] MEDS: POLYETHYLENE (MIRALAX) 17 GM PACK PO SCH (09:41)
[2022-03-21] MEDS: INSULIN ASPART PER UNIT SC SCH ×2 (09:41→12:49)
[2022-03-21] MEDS: FAMOTIDINE 20 MG in SYRINGE 3 ML IV SCH (09:43)
--- NOTE | 2022-03-21 19:20 | Billing Data ---
Date of Service March 21, 2022 Coding Level of Care Code 12096 OBS Care - Discharge
== END 2022-03-21 13:53 ==
LOC: ED 22:07 → 3W 22:07 → SUATTDRO 03-20 01:30 → 3W 03-20 04:27